=== PATIENT | male | born 1940 | race Caucasian/White ===

== ENCOUNTER 2022-02-17 22:09 | Inpatient (IN) | payer MEDICARE, BC ==
[~2022-02-17] VITALS: Ht 170.2 cm; Wt 57.2 kg
[2022-02-17 21:45] VITALS: BP 132/55
[2022-02-17] MEDS ORDERED: SENN-261 GT (22:54)
[2022-02-17] MEDS ORDERED: ACET160S GT (22:54)
[2022-02-17] MEDS ORDERED: ASCO500T10 GT (22:54)
[2022-02-17] MEDS ORDERED: METH1TAB69 GT (22:54)
[2022-02-17] MEDS ORDERED: LEVE500S9 GT (22:54)
[2022-02-17] MEDS ORDERED: LISI40TA13 GT (22:54)
[2022-02-17] MEDS ORDERED: CARV6.252 GT (22:54)
[2022-02-17] MEDS ORDERED: SIME80TA15 GT (22:54)
[2022-02-17] MEDS ORDERED: HYDR-894 GT (22:54)
[2022-02-17] MEDS ORDERED: MENT113O13 TOP (22:54)
[2022-02-17] MEDS ORDERED: ONDA-104 GT (22:54)
[2022-02-17] MEDS ORDERED: PANT40SU2 GT (22:54)
[2022-02-17] MEDS ORDERED: OLOP2.5D12 OP (22:54)
[2022-02-17] MEDS ORDERED: HEPA100D33 SUBCUT (22:54)
[2022-02-17] MEDS ORDERED: ROSU10TA2 GT (22:54)
[2022-02-17] MEDS ORDERED: VANC50SO3 GT (22:54)
[2022-02-17] MEDS ORDERED: LACT1CAP57 GT (22:54)
[2022-02-17] MEDS ORDERED: AMLO-212 GT (22:54)
[2022-02-17] MEDS ORDERED: BETH25TA2 GT (22:54)
[2022-02-17] MEDS ORDERED: ONDANSETRON HCL 4 MG TABLET GT PRN (23:15)
[2022-02-17] MEDS ORDERED: hydrALAZINE HCL 25 MG TABLET GT PRN (23:15)
[2022-02-18] MEDS: VITAL AF 1.2 1,000 ML LIQUID GT PRN (00:10)
[2022-02-18] MEDS: ACETAMINOPHEN 650 MG/20.3 ML LIQUID UDC GT PRN ×2 (00:32→22:23)
[2022-02-18 04:00] VITALS: BP 118/43
--- NOTE | 2022-02-18 06:09 | NUR ---
Pt admitted to ARU. No distress noted. No IV site at this time. Able to answer simple questions. North intact draining to gravity. GT patent running ordered feedings, tolerating well. Turned and repositioned for comfort. Wound care done in sacral region. medical housekeeper is at bedside. Will endorse to day shift.
[2022-02-18] MEDS: PANTOPRAZOLE ORAL SUSPENSION 40 MG SUSPDR.PKT GT SCH ×2 (06:45→17:09)
--- NOTE | 2022-02-18 07:39 | NUR ---
WOUND CARE CONSULT: PT PRESENTS WITH SACRAL DEEP TISSUE INJURY IN EVOLUTION, PRESENT ON ADMISSION. RECOMMENDATIONS MADE FOR SKIN PROTECTION AND WOUND CARE. DISCUSSED WITH NURSING STAFF. FIRST STEP LOW AIRLOSS MATTRESS IS ON ORDER. CAREGIVER AT BEDSIDE. YEN ROWELL NOTED. DR RANDY ATWOOD CALLED FOR SURGICAL CONSULT. IN AGREEMENT WITH PLAN OF CARE. Addendum: 02/18/22 at 0740 by ROSELINE BERRY RN Amended: Links added.
[2022-02-18] MEDS ORDERED: REMEDY ESSENTIAL ZINC PASTE 113 GM TOP PRN (07:45)
[2022-02-18 08:03] VITALS: BP 135/78
[2022-02-18] MEDS ORDERED: Medication Not On Formulary EA (Methenamine Hippurate 1 GM) GT SCH (09:00)
[2022-02-18] MEDS: BETHANECHOL CHLORIDE 25 MG TABLET GT SCH ×3 (09:34→17:09)
[2022-02-18] MEDS: AMLODIPINE 5 MG TABLET GT SCH ×2 (09:35→17:10)
[2022-02-18] MEDS: CARVEDILOL 6.25 MG TABLET GT SCH ×2 (09:35→17:10)
[2022-02-18] MEDS: levETIRAcetam 500 MG/5 ML LIQUID UDC GT SCH ×3 (09:36→21:47)
[2022-02-18] MEDS: VANCOMYCIN FOR PO/GT/NG USE GT SCH ×4 (09:36→21:47)
[2022-02-18] MEDS: SIMETHICONE 80 MG TAB.CHEW GT SCH ×4 (09:36→21:48)
[2022-02-18] MEDS: REMEDY ESSENTIAL ZINC PASTE 113 GM TOP SCH ×2 (09:37→21:49)
[2022-02-18] MEDS: HEPARIN SODIUM,PORCINE 5,000 UNITS/ML VIAL SQ SCH ×2 (09:38→22:13)
[2022-02-18 15:26] VITALS: BP 121/58
[2022-02-18 20:44] VITALS: BP 128/57
[2022-02-18] MEDS: ATORVASTATIN 20 MG TABLET GT SCH (21:48)
[2022-02-18] MEDS: LISINOPRIL 20 MG TABLET GT SCH (21:50)
[2022-02-19] MEDS: VITAL AF 1.2 1,000 ML LIQUID GT PRN (02:18)
[2022-02-19 04:05] VITALS: BP 140/64
[2022-02-19] MEDS: PANTOPRAZOLE ORAL SUSPENSION 40 MG SUSPDR.PKT GT SCH ×2 (07:05→17:15)
[2022-02-19 07:28] LABS: HEMATOCRIT 33.6 % (36.7-47.1); MEAN CORPUSCULAR HEMOGLOBIN 30.5 uug (23.8-33.4); MEAN CORPUSCULAR VOLUME 88.9 fL (73.0-96.2); PLATELET COUNT (AUTO) 441 K/uL (152-348)
[2022-02-19 07:31] LABS: CREATININE 0.7 mg/dL (0.6-1.3); MAGNESIUM 1.9 mg/dL (1.8-2.4); PHOSPHOROUS 4.2 mg/dL (2.5-4.9); POTASSIUM 4.3 mmol/L (3.5-5.1)
[2022-02-19 07:47] VITALS: BP 149/50
[2022-02-19] MEDS: levETIRAcetam 500 MG/5 ML LIQUID UDC GT SCH ×3 (09:00→20:29)
[2022-02-19] MEDS: SIMETHICONE 80 MG TAB.CHEW GT SCH ×4 (09:18→20:29)
[2022-02-19] MEDS: BETHANECHOL CHLORIDE 25 MG TABLET GT SCH ×3 (09:19→17:15)
[2022-02-19] MEDS: VANCOMYCIN FOR PO/GT/NG USE GT SCH ×4 (09:23→20:30)
[2022-02-19] MEDS: HEPARIN SODIUM,PORCINE 5,000 UNITS/ML VIAL SQ SCH ×2 (09:23→20:33)
[2022-02-19] MEDS: AMLODIPINE 5 MG TABLET GT SCH ×2 (09:24→17:17)
[2022-02-19] MEDS: CARVEDILOL 6.25 MG TABLET GT SCH ×2 (09:24→17:17)
[2022-02-19] MEDS: REMEDY ESSENTIAL ZINC PASTE 113 GM TOP SCH ×2 (09:25→20:36)
[2022-02-19] MEDS: POLYVINYL ALCOHOL OPHT DROPS 15 ML BOTTLE EACHEYE SCH ×3 (10:53→17:15)
[2022-02-19 15:11] VITALS: BP 120/47
[2022-02-19] MEDS: ATORVASTATIN 20 MG TABLET GT SCH (20:29)
[2022-02-19] MEDS: LISINOPRIL 20 MG TABLET GT SCH (20:30)
[2022-02-19 20:38] VITALS: BP 125/56
[2022-02-20] MEDS: ACETAMINOPHEN 650 MG/20.3 ML LIQUID UDC GT PRN (03:17)
--- NOTE | 2022-02-20 04:07 | NUR ---
Awake alert and oriented 2-3 Admitted for generalized weakness/acute CVA with left sided weakness. Repositioned for comfort. Turned to sides. Caregiver at bedside. On continous Gtube feedings of Vital AF 1.2 @ 50 cc/hr. HOB up at all times.Tolerated meds thru Gtube. Complained of pain Tylenol given. North catheter intact draining yellow urine. No acute distress noted. Will monitor patient.
[2022-02-20 04:18] VITALS: BP 136/79
[2022-02-20] MEDS: PANTOPRAZOLE ORAL SUSPENSION 40 MG SUSPDR.PKT GT SCH ×2 (06:31→16:35)
[2022-02-20 07:43] VITALS: BP 118/80
[2022-02-20] MEDS: HEPARIN SODIUM,PORCINE 5,000 UNITS/ML VIAL SQ SCH ×2 (08:35→20:26)
[2022-02-20] MEDS: BETHANECHOL CHLORIDE 25 MG TABLET GT SCH ×3 (08:37→16:35)
[2022-02-20] MEDS: CARVEDILOL 6.25 MG TABLET GT SCH ×2 (08:37→16:36)
[2022-02-20] MEDS: SIMETHICONE 80 MG TAB.CHEW GT SCH ×4 (08:37→20:19)
[2022-02-20] MEDS: POLYVINYL ALCOHOL OPHT DROPS 15 ML BOTTLE EACHEYE SCH ×3 (08:38→16:36)
[2022-02-20] MEDS: levETIRAcetam 500 MG/5 ML LIQUID UDC GT SCH ×2 (08:38→20:19)
[2022-02-20] MEDS: AMLODIPINE 5 MG TABLET GT SCH ×2 (08:38→16:36)
[2022-02-20] MEDS: REMEDY ESSENTIAL ZINC PASTE 113 GM TOP SCH ×2 (08:39→20:47)
[2022-02-20] MEDS: VANCOMYCIN FOR PO/GT/NG USE GT SCH ×4 (08:45→20:20)
--- NOTE | 2022-02-20 11:52 | NUR ---
INDIVIDUALIZED PLAN OF CARE
[2022-02-20 16:10] VITALS: BP 122/56
[2022-02-20] MEDS ORDERED: DEXTROSE 50% 50 ML DISP.SYRIN IV PRN (17:45)
[2022-02-20] MEDS: LISINOPRIL 20 MG TABLET GT SCH (20:20)
[2022-02-20] MEDS: ATORVASTATIN 20 MG TABLET GT SCH (20:22)
[2022-02-20 20:39] VITALS: BP 155/47
[2022-02-20] MEDS: BLOOD SUGAR DIAGNOSTIC 1 EACH STRIP VI SCH (20:48)
--- NOTE | 2022-02-21 04:15 | NUR ---
Condition unchanged. AAOx 2-3 Needs attended. Caregiver at bedside. Repositioned for comfort. Turned q2. VSS All meds given via Gtube. No acute distress noted. HOB up at all times. Will monitor patient.Accucheck this am. HOB up at all times.
[2022-02-21 04:29] VITALS: BP 128/62
[2022-02-21] MEDS: PANTOPRAZOLE ORAL SUSPENSION 40 MG SUSPDR.PKT GT SCH ×2 (06:30→17:16)
[2022-02-21 07:41] VITALS: BP 144/66
[2022-02-21] MEDS: levETIRAcetam 500 MG/5 ML LIQUID UDC GT SCH ×2 (09:03→22:20)
[2022-02-21] MEDS: POLYVINYL ALCOHOL OPHT DROPS 15 ML BOTTLE EACHEYE SCH ×3 (09:03→17:19)
[2022-02-21] MEDS: CARVEDILOL 6.25 MG TABLET GT SCH ×2 (09:04→17:17)
[2022-02-21] MEDS: SIMETHICONE 80 MG TAB.CHEW GT SCH ×4 (09:04→22:19)
[2022-02-21] MEDS: REMEDY ESSENTIAL ZINC PASTE 113 GM TOP SCH ×2 (09:05→21:00)
[2022-02-21] MEDS: BETHANECHOL CHLORIDE 25 MG TABLET GT SCH ×3 (09:05→17:16)
[2022-02-21] MEDS: AMLODIPINE 5 MG TABLET GT SCH ×2 (09:06→17:16)
[2022-02-21] MEDS: ACETAMINOPHEN 650 MG/20.3 ML LIQUID UDC GT PRN ×2 (09:09→13:41)
[2022-02-21] MEDS: VANCOMYCIN FOR PO/GT/NG USE GT SCH ×4 (09:10→22:19)
[2022-02-21] MEDS: HEPARIN SODIUM,PORCINE 5,000 UNITS/ML VIAL SQ SCH ×2 (09:12→22:21)
[2022-02-21 16:17] VITALS: BP 143/47
[2022-02-21 20:00] VITALS: BP 136/40
[2022-02-21] MEDS: BLOOD SUGAR DIAGNOSTIC 1 EACH STRIP VI SCH (21:00)
[2022-02-21] MEDS: LISINOPRIL 20 MG TABLET GT SCH (21:00)
[2022-02-21] MEDS: ATORVASTATIN 20 MG TABLET GT SCH (22:19)
[2022-02-22 04:35] VITALS: BP 133/56
--- NOTE | 2022-02-22 06:27 | NUR ---
uneventful night. pt slept throughout the night; reposition q2hr; tolerated feeding well; vitals wnl; caregiver at bedside.
[2022-02-22 06:52] LABS: MEAN CORPUSCULAR HEMOGLOBIN 30.4 uug (23.8-33.4); MEAN CORPUSCULAR VOLUME 89.2 fL (73.0-96.2); PLATELET COUNT (AUTO) 383 K/uL (152-348)
[2022-02-22 07:01] LABS: CREATININE 0.6 mg/dL (0.6-1.3); POTASSIUM 4.1 mmol/L (3.5-5.1)
[2022-02-22 07:35] VITALS: BP 148/45
[2022-02-22] MEDS: BETHANECHOL CHLORIDE 25 MG TABLET GT SCH ×3 (08:27→16:51)
[2022-02-22] MEDS: PANTOPRAZOLE ORAL SUSPENSION 40 MG SUSPDR.PKT GT SCH ×2 (08:27→16:50)
[2022-02-22] MEDS: SIMETHICONE 80 MG TAB.CHEW GT SCH ×4 (08:28→20:56)
[2022-02-22] MEDS: AMLODIPINE 5 MG TABLET GT SCH ×2 (08:31→16:58)
[2022-02-22] MEDS: CARVEDILOL 6.25 MG TABLET GT SCH ×2 (08:31→16:58)
[2022-02-22] MEDS: HEPARIN SODIUM,PORCINE 5,000 UNITS/ML VIAL SQ SCH ×2 (08:53→20:57)
[2022-02-22] MEDS: VANCOMYCIN FOR PO/GT/NG USE GT SCH ×4 (08:55→20:56)
[2022-02-22] MEDS: levETIRAcetam 500 MG/5 ML LIQUID UDC GT SCH ×2 (08:56→20:56)
[2022-02-22] MEDS: REMEDY ESSENTIAL ZINC PASTE 113 GM TOP SCH ×2 (08:56→20:59)
[2022-02-22] MEDS: POLYVINYL ALCOHOL OPHT DROPS 15 ML BOTTLE EACHEYE SCH ×3 (08:56→16:51)
[2022-02-22 16:00] VITALS: BP 136/45
[2022-02-22 20:00] VITALS: BP 146/50
[2022-02-22] MEDS: LISINOPRIL 20 MG TABLET GT SCH (20:56)
[2022-02-22] MEDS: ATORVASTATIN 20 MG TABLET GT SCH (20:56)
[2022-02-22] MEDS: BLOOD SUGAR DIAGNOSTIC 1 EACH STRIP VI SCH (20:57)
[2022-02-22] MEDS: INSULIN REGULAR, HUMAN 300 UNIT/3 ML VIAL SQ PRN (20:59)
[2022-02-23] MEDS: ACETAMINOPHEN 650 MG/20.3 ML LIQUID UDC GT PRN ×2 (01:05→23:55)
[2022-02-23 04:00] VITALS: BP 127/60
[2022-02-23] MEDS: VITAL AF 1.2 1,000 ML LIQUID GT PRN (05:54)
[2022-02-23] MEDS: PANTOPRAZOLE ORAL SUSPENSION 40 MG SUSPDR.PKT GT SCH ×2 (06:28→16:41)
[2022-02-23 07:35] VITALS: BP 135/64
[2022-02-23] MEDS: AMLODIPINE 5 MG TABLET GT SCH ×2 (08:34→16:43)
[2022-02-23] MEDS: levETIRAcetam 500 MG/5 ML LIQUID UDC GT SCH ×2 (08:34→21:22)
[2022-02-23] MEDS: BETHANECHOL CHLORIDE 25 MG TABLET GT SCH ×3 (08:35→16:43)
[2022-02-23] MEDS: POLYVINYL ALCOHOL OPHT DROPS 15 ML BOTTLE EACHEYE SCH ×3 (08:35→16:42)
[2022-02-23] MEDS: VANCOMYCIN FOR PO/GT/NG USE GT SCH ×4 (08:36→21:23)
[2022-02-23] MEDS: CARVEDILOL 6.25 MG TABLET GT SCH ×2 (09:06→16:42)
[2022-02-23] MEDS: REMEDY ESSENTIAL ZINC PASTE 113 GM TOP SCH ×2 (09:07→21:36)
[2022-02-23] MEDS: SIMETHICONE 80 MG TAB.CHEW GT SCH ×4 (09:22→21:23)
[2022-02-23] MEDS: HEPARIN SODIUM,PORCINE 5,000 UNITS/ML VIAL SQ SCH ×2 (09:24→21:43)
--- NOTE | 2022-02-23 11:24 | NUR ---
0720-Patient in bed, HOB elevated, awake with slurred speech, able to make eye contact, no physical or respiratory distress noted. GT (+) placement and patency. Aspiration precautions observed. No N/V noted. CG at bedside.
--- NOTE | 2022-02-23 15:51 | NUR ---
1300-Patient in bed, HOB elevated; No respiratory distress noted. GT feeding and fluids tolerating well, no N/V noted, aspiration precautions observed. Patient is total care. Requires of one-two person assist with ADLs, personal care/hygiene, transfers and bed mobility. Patient with slurred speech/mumbles some words, very difficult to understand, does make eye contact. No physical or respiratory distress noted.
[2022-02-23 16:00] VITALS: BP 146/54
--- NOTE | 2022-02-23 18:33 | NUR ---
Patient in bed at this time, at bedside. HOB elevated, patient listening to music, responsive to verbal and tactile stimuli. No c/o pain. Patient had two BMs today, care provided as needed. Repositioned Q2HRS to promote comfort and facilitate pressure relief. North catheter draining to gravity-yellow urine output. Routine rounds and frequent visual checks done. Repositioned frequently through out shift due to patient leans onto left side.
[2022-02-23] MEDS: ATORVASTATIN 20 MG TABLET GT SCH (21:23)
[2022-02-23] MEDS: LISINOPRIL 20 MG TABLET GT SCH (21:36)
[2022-02-23] MEDS: BLOOD SUGAR DIAGNOSTIC 1 EACH STRIP VI SCH (21:37)
[2022-02-23] MEDS: INSULIN REGULAR, HUMAN 300 UNIT/3 ML VIAL SQ PRN (21:42)
[2022-02-24 04:00] VITALS: BP 136/60
--- NOTE | 2022-02-24 06:20 | NUR ---
Awake alert and oriented x3-4 Caregiver at bedside. Repositioned for comfort as needed. Turned to sides. On continous TF of [place] AF 1.2 @50cc/hr Tolerated well. No nausea/ vomiting noted. Incontinent of bowel and bladder. No BM noted this shift. HOB up at all times. All due meds given as scheduled. Fall precautions maintained. North catheter intact draining yellow urine. I & O monitored.
[2022-02-24] MEDS: PANTOPRAZOLE ORAL SUSPENSION 40 MG SUSPDR.PKT GT SCH ×2 (06:34→16:55)
[2022-02-24 07:35] VITALS: BP 108/66
[2022-02-24] MEDS: CARVEDILOL 6.25 MG TABLET GT SCH ×2 (09:00→16:57)
[2022-02-24] MEDS: AMLODIPINE 5 MG TABLET GT SCH ×2 (09:00→16:57)
[2022-02-24] MEDS: BETHANECHOL CHLORIDE 25 MG TABLET GT SCH ×3 (09:02→16:55)
[2022-02-24] MEDS: SIMETHICONE 80 MG TAB.CHEW GT SCH ×4 (09:02→21:02)
[2022-02-24] MEDS: levETIRAcetam 500 MG/5 ML LIQUID UDC GT SCH ×2 (09:03→21:03)
[2022-02-24] MEDS: VANCOMYCIN FOR PO/GT/NG USE GT SCH ×4 (09:04→20:56)
[2022-02-24] MEDS: REMEDY ESSENTIAL ZINC PASTE 113 GM TOP SCH ×2 (09:05→21:04)
[2022-02-24] MEDS: POLYVINYL ALCOHOL OPHT DROPS 15 ML BOTTLE EACHEYE SCH ×3 (09:06→16:57)
[2022-02-24] MEDS: HEPARIN SODIUM,PORCINE 5,000 UNITS/ML VIAL SQ SCH ×2 (09:06→21:07)
--- NOTE | 2022-02-24 13:50 | NUR ---
INTERDISCIPLINARY TEAM CONFERENCE
[2022-02-24 16:00] VITALS: BP 129/60
[2022-02-24 20:00] VITALS: BP 131/37
[2022-02-24] MEDS: LISINOPRIL 20 MG TABLET GT SCH (21:02)
[2022-02-24] MEDS: ATORVASTATIN 20 MG TABLET GT SCH (21:02)
[2022-02-24] MEDS: BLOOD SUGAR DIAGNOSTIC 1 EACH STRIP VI SCH (21:11)
[2022-02-24] MEDS: ACETAMINOPHEN 650 MG/20.3 ML LIQUID UDC GT PRN (21:23)
[2022-02-24] MEDS: INSULIN REGULAR, HUMAN 300 UNIT/3 ML VIAL SQ PRN (21:55)
[2022-02-25 04:00] VITALS: BP 141/51
[2022-02-25] MEDS: PANTOPRAZOLE ORAL SUSPENSION 40 MG SUSPDR.PKT GT SCH ×2 (06:30→16:36)
[2022-02-25 08:00] VITALS: BP_SYST 131; BP_SYST 160; BP_DIAS 50; BP_DIAS 62
[2022-02-25] MEDS: levETIRAcetam 500 MG/5 ML LIQUID UDC GT SCH ×2 (08:28→21:04)
[2022-02-25] MEDS: VANCOMYCIN FOR PO/GT/NG USE GT SCH (08:28)
[2022-02-25] MEDS: SIMETHICONE 80 MG TAB.CHEW GT SCH ×4 (08:29→21:06)
[2022-02-25] MEDS: CARVEDILOL 6.25 MG TABLET GT SCH ×2 (08:30→16:55)
[2022-02-25] MEDS: BETHANECHOL CHLORIDE 25 MG TABLET GT SCH ×3 (08:30→16:37)
[2022-02-25] MEDS: REMEDY ESSENTIAL ZINC PASTE 113 GM TOP SCH ×2 (08:31→21:07)
[2022-02-25] MEDS: POLYVINYL ALCOHOL OPHT DROPS 15 ML BOTTLE EACHEYE SCH ×3 (08:31→16:37)
[2022-02-25] MEDS: AMLODIPINE 5 MG TABLET GT SCH ×2 (08:31→16:55)
[2022-02-25] MEDS: HEPARIN SODIUM,PORCINE 5,000 UNITS/ML VIAL SQ SCH ×2 (08:40→21:21)
[2022-02-25] MEDS: ACETAMINOPHEN 650 MG/20.3 ML LIQUID UDC GT PRN (08:41)
--- NOTE | 2022-02-25 10:28 | NUR ---
Patient seen by Dr. Horan and he spoke to daughter Agnieszka at bedside. MD ordered to decrease tube feeding rate to 35cc/hour and discontinue vancomycin via GT. Orders carried.
[2022-02-25 16:56] VITALS: BP 153/53
[2022-02-25 20:00] VITALS: BP 154/67
[2022-02-25] MEDS: ATORVASTATIN 20 MG TABLET GT SCH (21:05)
[2022-02-25] MEDS: HYDROCODONE/APAP 5-325MG TABLET PO PRN (21:05)
[2022-02-25] MEDS: LISINOPRIL 20 MG TABLET GT SCH (21:07)
[2022-02-25] MEDS: BLOOD SUGAR DIAGNOSTIC 1 EACH STRIP VI SCH (21:20)
--- NOTE | 2022-02-26 02:02 | NUR ---
Condition unchanged. Awake alert and oriented x4 Needs attended. Fall precautions maintained. Siderails up for safety. Caregiver at bedside. On continous feeding of Vital AF 1.2 @ 35 cc/hr. Tolerated well. HOB up at all times. Repositioned cor comfort. Turned q2hr. Medicated with [place] for pain with relief noted. North catheter intact draining yellow urine. No acute distress noted.
[2022-02-26 04:00] VITALS: BP 158/69
[2022-02-26] MEDS: PANTOPRAZOLE ORAL SUSPENSION 40 MG SUSPDR.PKT GT SCH ×2 (06:32→17:01)
[2022-02-26 07:47] VITALS: BP 129/45
[2022-02-26] MEDS: BETHANECHOL CHLORIDE 25 MG TABLET GT SCH ×3 (08:13→17:01)
[2022-02-26] MEDS: levETIRAcetam 500 MG/5 ML LIQUID UDC GT SCH ×2 (08:15→20:48)
[2022-02-26] MEDS: HEPARIN SODIUM,PORCINE 5,000 UNITS/ML VIAL SQ SCH ×2 (08:15→20:51)
[2022-02-26] MEDS: SIMETHICONE 80 MG TAB.CHEW GT SCH ×4 (08:16→20:47)
[2022-02-26] MEDS: CARVEDILOL 6.25 MG TABLET GT SCH ×2 (08:16→17:02)
[2022-02-26] MEDS: HYDROCODONE/APAP 5-325MG TABLET PO PRN (08:18)
[2022-02-26] MEDS: POLYVINYL ALCOHOL OPHT DROPS 15 ML BOTTLE EACHEYE SCH ×3 (08:26→17:02)
[2022-02-26 08:38] VITALS: BP 133/53
[2022-02-26] MEDS: AMLODIPINE 5 MG TABLET GT SCH ×2 (09:00→17:05)
[2022-02-26] MEDS: REMEDY ESSENTIAL ZINC PASTE 113 GM TOP SCH ×2 (09:44→20:48)
[2022-02-26 15:04] VITALS: BP 149/61
[2022-02-26] MEDS: NYSTATIN CREAM 30 GM TUBE TOP SCH ×2 (16:13→21:03)
--- NOTE | 2022-02-26 18:13 | NUR ---
0930-Patient alert and oriented,able to verbalize simple needs, no respiratory distress noted; GTF and fluids as ordered and well nirmal. No N/V noted. HOB kept elevated at all times; aspiration precautions observed. Medicated patient for pain PRN as per his pain level needs/ordered by MD with relief. North catheter draining to gravity yellow urine output. Patient complained of groin itchiness, MD Lorenzo notified with orders for topical Nystatin, order noted and carried out. Patient informed of order, agreed and consented. Nystatin cream applied to groin area. Mild/minimal skin irritation noted. Good perineal care provided. Repositioned Q2HRS to promote comfort and facilitate pressure relief. CG at bedside. Safety measures in place.
--- NOTE | 2022-02-26 18:20 | NUR ---
Patient awake, at bedside visiting. Patient appears comfortable and in no apparent distress.HOB elevated.No c/o pain, Routine rounds and frequent visual checks done. All needs anticipated and met.
[2022-02-26 20:00] VITALS: BP 134/69
[2022-02-26] MEDS: VITAL AF 1.2 1,000 ML LIQUID GT PRN (20:42)
[2022-02-26] MEDS: ATORVASTATIN 20 MG TABLET GT SCH (20:47)
[2022-02-26] MEDS: LISINOPRIL 20 MG TABLET GT SCH (20:48)
[2022-02-26] MEDS: BLOOD SUGAR DIAGNOSTIC 1 EACH STRIP VI SCH (20:49)
[2022-02-26] MEDS: INSULIN REGULAR, HUMAN 300 UNIT/3 ML VIAL SQ PRN (21:04)
[2022-02-27] MEDS: ACETAMINOPHEN 650 MG/20.3 ML LIQUID UDC GT PRN (00:54)
[2022-02-27 04:00] VITALS: BP 100/53
[2022-02-27] MEDS: PANTOPRAZOLE ORAL SUSPENSION 40 MG SUSPDR.PKT GT SCH ×2 (06:31→16:44)
[2022-02-27 08:24] VITALS: BP 145/53
[2022-02-27 08:27] LABS: HEMATOCRIT 35.6 % (36.7-47.1); MEAN CORPUSCULAR HEMOGLOBIN 31.3 uug (23.8-33.4); MEAN CORPUSCULAR VOLUME 88.3 fL (73.0-96.2); PLATELET COUNT (AUTO) 261 K/uL (152-348)
[2022-02-27 08:32] LABS: CREATININE 0.7 mg/dL (0.6-1.3); MAGNESIUM 1.7 mg/dL (1.8-2.4); PHOSPHOROUS 4.6 mg/dL (2.5-4.9); POTASSIUM 4.5 mmol/L (3.5-5.1)
[2022-02-27] MEDS: POLYVINYL ALCOHOL OPHT DROPS 15 ML BOTTLE EACHEYE SCH ×3 (08:50→17:04)
[2022-02-27] MEDS: HEPARIN SODIUM,PORCINE 5,000 UNITS/ML VIAL SQ SCH ×2 (08:51→20:40)
[2022-02-27] MEDS: SIMETHICONE 80 MG TAB.CHEW GT SCH ×4 (08:52→20:35)
[2022-02-27] MEDS: BETHANECHOL CHLORIDE 25 MG TABLET GT SCH ×3 (08:52→16:44)
[2022-02-27] MEDS: AMLODIPINE 5 MG TABLET GT SCH ×2 (08:52→16:52)
[2022-02-27] MEDS: CARVEDILOL 6.25 MG TABLET GT SCH ×2 (08:53→17:03)
[2022-02-27] MEDS: levETIRAcetam 500 MG/5 ML LIQUID UDC GT SCH ×2 (08:53→20:29)
[2022-02-27] MEDS: SENNOSIDES 1 TABLET GT PRN (08:53)
[2022-02-27] MEDS: NYSTATIN CREAM 30 GM TUBE TOP SCH ×2 (09:36→20:42)
[2022-02-27] MEDS: REMEDY ESSENTIAL ZINC PASTE 113 GM TOP SCH ×2 (09:37→20:32)
[2022-02-27] MEDS ORDERED: MAGNESIUM OXIDE 400 MG TABLET PO ONE (11:00)
[2022-02-27 16:38] VITALS: BP 110/56
--- NOTE | 2022-02-27 17:27 | NUR ---
Patient in bed at this time, rec'd PT/OT during the day/AM tolerated well. Patient total care, requires of two person maximum assist with transfers, bed mobility for turning and repositioning. Incontinent of BM, cleaned at routine intervals, had a small soft form BM, vizcaino catheter in place. Turned and repositioned Q2HRS/as needed. HOB elevated at all times; air demetria in place. No c/o pain.
--- NOTE | 2022-02-27 18:33 | NUR ---
5:40PM-Patient had a medium soft formed BM, Care provided, repositioned for comfort and pressure relief. HOB elevated; Air mattress in place and in working order. at bedside. Patient in no respiratory distress, denies any pain.
[2022-02-27] MEDS: ATORVASTATIN 20 MG TABLET GT SCH (20:29)
[2022-02-27] MEDS: LISINOPRIL 20 MG TABLET GT SCH (20:30)
[2022-02-27 20:31] VITALS: BP 124/45
[2022-02-27] MEDS: BLOOD SUGAR DIAGNOSTIC 1 EACH STRIP VI SCH (21:09)
[2022-02-27] MEDS: INSULIN REGULAR, HUMAN 300 UNIT/3 ML VIAL SQ PRN (21:11)
[2022-02-28 04:00] VITALS: BP 123/48
[2022-02-28] MEDS: VITAL AF 1.2 1,000 ML LIQUID GT PRN (04:22)
[2022-02-28] MEDS: PANTOPRAZOLE ORAL SUSPENSION 40 MG SUSPDR.PKT GT SCH ×2 (06:58→16:52)
[2022-02-28] MEDS: HEPARIN SODIUM,PORCINE 5,000 UNITS/ML VIAL SQ SCH ×2 (08:41→20:58)
[2022-02-28] MEDS: SIMETHICONE 80 MG TAB.CHEW GT SCH ×4 (08:42→20:39)
[2022-02-28] MEDS: SENNOSIDES 1 TABLET GT PRN (08:42)
[2022-02-28] MEDS: BETHANECHOL CHLORIDE 25 MG TABLET GT SCH ×3 (08:42→16:55)
[2022-02-28] MEDS: POLYVINYL ALCOHOL OPHT DROPS 15 ML BOTTLE EACHEYE SCH ×3 (08:51→16:56)
[2022-02-28] MEDS: AMLODIPINE 5 MG TABLET GT SCH ×2 (08:52→16:58)
[2022-02-28] MEDS: REMEDY ESSENTIAL ZINC PASTE 113 GM TOP SCH ×2 (08:53→20:58)
[2022-02-28] MEDS: NYSTATIN CREAM 30 GM TUBE TOP SCH ×2 (08:53→20:58)
[2022-02-28] MEDS: levETIRAcetam 500 MG/5 ML LIQUID UDC GT SCH ×2 (08:54→21:00)
[2022-02-28] MEDS: CARVEDILOL 6.25 MG TABLET GT SCH ×2 (08:54→16:57)
[2022-02-28 09:00] VITALS: BP 139/58
[2022-02-28] MEDS: ACETAMINOPHEN 650 MG/20.3 ML LIQUID UDC GT PRN ×3 (09:24→22:50)
[2022-02-28] MEDS ORDERED: VITAL AF 1.2 1,000 ML LIQUID GT PRN (11:45)
--- NOTE | 2022-02-28 12:56 | NUR ---
patient son at bedside stated would like to have bladder training, discussed in length about bladder training, patient son stated they are not ready for discontinue to the North and do bladder training, however like to clamp the North, will clamp and unclamp for bladder training.
[2022-02-28 16:55] VITALS: BP 131/53
--- NOTE | 2022-02-28 18:30 | NUR ---
no events noted during shift
[2022-02-28 20:00] VITALS: BP 153/83
[2022-02-28] MEDS: ATORVASTATIN 20 MG TABLET GT SCH (20:39)
[2022-02-28] MEDS: LISINOPRIL 20 MG TABLET GT SCH (20:56)
[2022-02-28] MEDS: INSULIN REGULAR, HUMAN 300 UNIT/3 ML VIAL SQ PRN (21:29)
[2022-02-28] MEDS: BLOOD SUGAR DIAGNOSTIC 1 EACH STRIP VI SCH (21:29)
[2022-03-01 04:00] VITALS: BP 141/61
--- NOTE | 2022-03-01 05:06 | NUR ---
Slept intermittently through out the night. North Cath intact and draining well with clear, light yellow output. Flushed 150 ml of water every 6 hours as ordered. Feedings at 15 cc/hr. Tolerating well. No residual noted. Turned every 2 hours. Caregiver at bedside.
[2022-03-01] MEDS: PANTOPRAZOLE ORAL SUSPENSION 40 MG SUSPDR.PKT GT SCH ×2 (06:42→17:55)
[2022-03-01 07:55] VITALS: BP 140/72
[2022-03-01] MEDS: CARVEDILOL 6.25 MG TABLET GT SCH ×2 (09:00→17:00)
[2022-03-01] MEDS: AMLODIPINE 5 MG TABLET GT SCH ×2 (09:00→17:56)
[2022-03-01] MEDS: ACETAMINOPHEN 650 MG/20.3 ML LIQUID UDC GT PRN (09:49)
[2022-03-01] MEDS ORDERED: ACETAMINOPHEN 325 MG TABLET PO PRN (11:30)
[2022-03-01] MEDS: BETHANECHOL CHLORIDE 25 MG TABLET GT SCH ×3 (11:51→17:57)
[2022-03-01] MEDS: HEPARIN SODIUM,PORCINE 5,000 UNITS/ML VIAL SQ SCH (11:59)
[2022-03-01] MEDS: REMEDY ESSENTIAL ZINC PASTE 113 GM TOP SCH (12:00)
[2022-03-01] MEDS: NYSTATIN CREAM 30 GM TUBE TOP SCH (12:00)
[2022-03-01] MEDS: levETIRAcetam 500 MG/5 ML LIQUID UDC GT SCH (12:20)
[2022-03-01] MEDS: POLYVINYL ALCOHOL OPHT DROPS 15 ML BOTTLE EACHEYE SCH ×3 (12:24→18:09)
[2022-03-01] MEDS: SIMETHICONE 80 MG TAB.CHEW GT SCH ×3 (13:00→17:56)
[2022-03-01 16:01] VITALS: BP 132/58
[2022-03-01] MEDS ORDERED: TIZANIDINE HCL 4 MG TABLET PO SCH (17:00)
[2022-03-01 17:56] VITALS: BP 115/53
--- NOTE | 2022-03-01 18:45 | NUR ---
Receive patient in hospital bed with eyes close. He is Farsi speaking, calm and relax at this time. No s/s of pain nor acute distress noted. He is breathing normal on room air. Dx: generalize weakness. Sacral stage 2. F/C intact and draining freely w/clear, yellow output. Flushed G-tube 150ml of fluids Q6hrs. Feeding is running at 15 cc/hr. Patient is tolerated feeding well. Reposition patient q2hrs. Left resting comfortably.
[2022-03-01] MEDS ORDERED: NOREPINEPHRINE BITARTRATE 8 MG in IV NORMAL SALINE 242 ML IV PRN (19:15)
[2022-03-01] MEDS ORDERED: ONDANSETRON 4 MG/2 ML VIAL IV PRN (19:15)
[2022-03-01] MEDS ORDERED: ATROPINE SULFATE 1 MG/10 ML DISP.SYRIN ONE (19:31)
[2022-03-01 19:37] LABS: HEMATOCRIT 33.7 % (36.7-47.1); MEAN CORPUSCULAR HEMOGLOBIN 31.2 uug (23.8-33.4); MEAN CORPUSCULAR VOLUME 89.7 fL (73.0-96.2); PLATELET COUNT (AUTO) 255 K/uL (152-348)
[2022-03-01 19:42] LABS: BILIRUBIN,TOTAL 0.3 mg/dL (0.2-1.0); CREATININE 0.9 mg/dL (0.6-1.3); POTASSIUM 4.4 mmol/L (3.5-5.1); TOTAL PROTEIN, SERUM 6.4 g/dL (6.4-8.2)
--- NOTE | 2022-03-01 19:45 | NUR ---
1845-Patient was getting fed by a family member; spouse later came out to report that patient was not responding that his blood pressure might be low. PUTTY TINTER MAKER came in and checked patient blood pressure which was low at 55/53, and then she rechecked it again it was still low at 66/54. Dr. Damico informed and he came in to stabilize patient. Rapid response team was then called around 1900. Team came to stabilize patient. @1700 patient was due for Coreg and Amlodipine. Bp checked 115/53 HR66, sn administered Amlodipine and held Coreg. It appears that patient did aspirated while being fed. Patient is being transfer to ICU. 0900 patient blood pressure low 99/57, HR72; both Coreg and Norvasc held.
--- NOTE | 2022-03-01 19:50 | NUR ---
: MADELIN AT B/S WITH ORDER TO give 1 amp of atropine IVP X1 BP 72/28 HR 44.patient on face mask at 15 liters 02 saturation 100%.
--- NOTE | 2022-03-01 19:51 | NUR ---
lab at b/s for blood cultures x2 set ,troponin,lactic acid, cbc,cmp .
[2022-03-01] MEDS ORDERED: DOPamine IV DRIP 400 MG/250ML 250 ML IV PRN (20:00)
--- NOTE | 2022-03-01 20:07 | NUR ---
DOPAMINE DRIP STARTED AT 5 MCG/KG/MIN BP 95/38 PER DEVIN YUSUF
--- NOTE | 2022-03-01 20:10 | NUR ---
CHEST XRAY AND KUB DONE AT B/S AND RESULTS SEEN BY : MADELIN .
[2022-03-01] MEDS ORDERED: CEFEPIME HCL 1 G in IV DEXTROSE 5% 50 ML IV SCH (21:00)
[2022-03-02 18:15] LABS: ABG BASE EXCESS 0.6 mmol/L; ABG HCO3 24.7 mmol/L; ABG PCO2 38.2 mmHg (35.0-45.0); ABG PH 7.429 (7.350-7.450); ABG PO2 159.6 mmHg (75.0-100.0); ABG SITE RIGHT RADIAL; ABG TOTAL HEMOGLOBIN 13.2 G/dL (13.5-18.0); COHb 0.3 % (0.5-1.5); MetHb 0.2 % (0.0-1.5); O2Hb 98.6 % (94.0-97.0); VENT MODE Nasal Cannula
[2022-03-04] MEDS ORDERED: CEFE1VIA3 IV (13:58)
[2022-03-04] MEDS ORDERED: LISI20TA30 PO (13:58)
[2022-03-04] MEDS ORDERED: ALBU2.5V7 NEB (13:58)
[2022-03-04] MEDS ORDERED: MENT113O TOP (13:58)
[2022-03-04] MEDS ORDERED: NUT.237L65 GT (13:58)
[2022-03-04] MEDS ORDERED: ATOR20TA GT (13:58)
[2022-03-04] MEDS ORDERED: CLOT30CR24 TOP (13:58)
[2022-03-04] MEDS ORDERED: VANC500V GT (13:58)
== END 2022-03-01 20:27 | disposition short-term general hospital (02) | DRG 56 ==
PROVIDERS: ADMIT Physical Medicine & Rehabilitation Pain Medicine; ATTEND Physical Medicine & Rehabilitation Pain Medicine
DX: I69.154 Hemiplegia and hemiparesis following nontraumatic intracerebral hemorrhage affecting left non-dominant side (principal); E43 Unspecified severe protein-calorie malnutrition; E87.1 Hypo-osmolality and hyponatremia; A04.72 Enterocolitis due to Clostridium difficile, not specified as recurrent; N39.0 Urinary tract infection, site not specified; I69.122 Dysarthria following nontraumatic intracerebral hemorrhage; I69.191 Dysphagia following nontraumatic intracerebral hemorrhage; I69.120 Aphasia following nontraumatic intracerebral hemorrhage; I10 Essential (primary) hypertension; E78.5 Hyperlipidemia, unspecified; I25.10 Atherosclerotic heart disease of native coronary artery without angina pectoris; Z93.1 Gastrostomy status; Z90.79 Acquired absence of other genital organ(s); Z85.46 Personal history of malignant neoplasm of prostate; E11.9 Type 2 diabetes mellitus without complications; E88.09 Other disorders of plasma-protein metabolism, not elsewhere classified; L89.152 Pressure ulcer of sacral region, stage 2
CPT/HCPCS: 36415; 36600; 70450; 71045; 74018; 83605; 83735; 84100; 84484; 85025; 87040; A4663; A6209; J0461; J0692; J1644; J1815; J3370; J3490; J7040

== ENCOUNTER 2022-03-01 20:41 | Inpatient (IN) | payer MEDICARE, BC ==
[2022-03-01] VITALS (26 sets, daily range): BP systolic 73–182; BP diastolic 30–146
[~2022-03-01] VITALS: Ht 167.6 cm; Wt 58.5 kg
--- NOTE | 2022-03-01 19:40 | NUR ---
dr: meagan at b/s spoked with patient so who is also a doctor . 2 liters of normal saline in progress and infusing at the same time wide open .started dopamine drip at 5 mcg/kg min .
--- NOTE | 2022-03-01 19:50 | NUR ---
patient in bed weak and lethargic on simple face mask 10 liters , hr was 44 given 1 amp atropine x1.
--- NOTE | 2022-03-01 19:51 | NUR ---
final assembly and packing supervisor at b/s for blood cultures x2, troponin,lactic acid cbc,chemistry .
--- NOTE | 2022-03-01 19:57 | NUR ---
stop dopamine drip as per osman rhodes verbal order at b/s. bp 184/67 hr 75 rr 18 saturation 100%.
--- NOTE | 2022-03-01 20:07 | NUR ---
restarted dopamine drip at 5 mcg/kg/min ,bp 95/38 hr 62.
--- NOTE | 2022-03-01 20:10 | NUR ---
xray at b/s for portbale chest xray and KUB xray . connected peg to suction LIWS.
[~2022-03-01 20:41] MED LIST: ACET160S GT; AMLO-212 GT; ASCO500T10 GT; BETH25TA2 GT; CARV6.252 GT; HEPA100D33 SUBCUT; HYDR-894 GT; LACT1CAP57 GT; LEVE500S9 GT; LISI40TA13 GT; MENT113O13 TOP; OLOP2.5D12 OP; ONDA-104 GT; PANT40SU2 GT; ROSU10TA2 GT; SENN-261 GT; SIME80TA15 GT; VANC50SO3 GT
[2022-03-01] MEDS ORDERED: Medication Not On Formulary EA (Lisinopril 40 MG) GT SCH (21:00)
[2022-03-01] MEDS ORDERED: HEPARIN SODIUM PORCINE SUBCUT SCH (21:00)
[2022-03-01] MEDS ORDERED: ALBUTEROL SULFATE 2.5 MG/3 ML NEBU NEB PRN (21:00)
[2022-03-01] MEDS: SIMETHICONE 80 MG TAB.CHEW GT SCH (21:00)
[2022-03-01] MEDS ORDERED: Medication Not On Formulary EA (Rosuvastatin Calcium (Crestor) 10 MG) GT SCH (21:00)
[2022-03-01] MEDS ORDERED: ALBUTEROL SULFATE 8 GM HFA.AER.AD IH PRN (21:00)
[2022-03-01] MEDS ORDERED: Medication Not On Formulary EA (Acetaminophen 650 MG) GT PRN (21:00)
[2022-03-01] MEDS ORDERED: LISINOPRIL 20 MG TABLET GT SCH (21:00)
[2022-03-01] MEDS: BLOOD SUGAR DIAGNOSTIC 1 EACH STRIP VI SCH (21:00)
[2022-03-01] MEDS ORDERED: REMEDY ESSENTIAL ZINC PASTE 113 GM TOP PRN (21:00)
[2022-03-01] MEDS ORDERED: [UNRECOGNIZED DRUG - OTHER] SUBCUT SCH (21:00)
[2022-03-01] MEDS ORDERED: ONDANSETRON 4 MG/2 ML VIAL IV PRN (21:00)
[2022-03-01] MEDS ORDERED: DEXTROSE 50% 50 ML DISP.SYRIN IV PRN (21:00)
[2022-03-01] MEDS ORDERED: SENNOSIDES 1 TABLET GT PRN (21:00)
[2022-03-01] MEDS ORDERED: OLOPATADINE 0.1% OPHT DROP 5 ML BOTTLE EACHEYE PRN (21:15)
--- NOTE | 2022-03-01 21:30 | NUR ---
moved patient to ER c/o ccu transition ,patient went via bed with son and and direct support professional caregiver ,advised son to bring to bring belongings home . went via bed .
[2022-03-01] MEDS: CEFEPIME HCL 1 G in IV DEXTROSE 5% 50 ML IV SCH (22:00)
[2022-03-01] MEDS ORDERED: DOPamine IV DRIP 400 MG/250ML 250 ML IV PRN (22:00)
[2022-03-01] MEDS ORDERED: levETIRAcetam 500 MG/5 ML LIQUID UDC ONE (22:39)
[2022-03-01] MEDS ORDERED: LISINOPRIL 10 MG TABLET ONE (22:39)
[2022-03-01] MEDS ORDERED: CEFEPIME HCL 1 G VIAL ONE (22:39)
[2022-03-01] MEDS ORDERED: HEPARIN SODIUM,PORCINE 5,000 UNITS/ML VIAL ONE (22:40)
[2022-03-01] MEDS: IV LACTATED RINGERS SOLUTION 1,000 ML IV SCH (22:50)
[2022-03-01] MEDS: HEPARIN SODIUM,PORCINE 5,000 UNITS/ML VIAL SQ SCH (23:05)
[2022-03-01] MEDS ORDERED: ATORVASTATIN 20 MG TABLET ONE (23:37)
[2022-03-01] MEDS: ATORVASTATIN 20 MG TABLET GT SCH (23:58)
[2022-03-01] MEDS: levETIRAcetam 500 MG/5 ML LIQUID UDC GT SCH (23:58)
[2022-03-02] VITALS (48 sets, daily range): BP systolic 113–163; BP diastolic 47–77
[2022-03-02] MEDS: INSULIN REGULAR, HUMAN 300 UNIT/3 ML VIAL SQ PRN
[2022-03-02] MEDS ORDERED: DEXTROSE 50% 50 ML DISP.SYRIN ONE (00:12)
[2022-03-02] MEDS ORDERED: DOPamine IV DRIP 400 MG/250ML 250 ML IV PRN (00:15)
[2022-03-02] MEDS ORDERED: ACETAMINOPHEN 325 MG TABLET ONE ×2 (03:23→17:56)
[2022-03-02] MEDS: ACETAMINOPHEN 325 MG TABLET GT PRN ×2 (03:24→17:57)
--- NOTE | 2022-03-02 03:55 | NUR ---
Pt verbalized chest pain,informed Dr Orta, Dr Orta at bedside, examined and spoke to pt, EKG done, EKG given to MD, no further orders
[2022-03-02 05:29] LABS: MEAN CORPUSCULAR HEMOGLOBIN 30.9 uug (23.8-33.4); MEAN CORPUSCULAR VOLUME 89.4 fL (73.0-96.2); PLATELET COUNT (AUTO) 252 K/uL (152-348)
[2022-03-02 05:52] LABS: BILIRUBIN,TOTAL 0.5 mg/dL (0.2-1.0); CREATININE 0.7 mg/dL (0.6-1.3); PHOSPHOROUS 3.6 mg/dL (2.5-4.9); POTASSIUM 4.1 mmol/L (3.5-5.1); TOTAL PROTEIN, SERUM 7.6 g/dL (6.4-8.2)
[2022-03-02] MEDS ORDERED: CEFTRIAXONE /D5W 50ML IVPB **ER PYXIS IV ONE (06:10)
[2022-03-02] MEDS ORDERED: CEFEPIME HCL 1 G VIAL ONE ×2 (06:13→22:10)
[2022-03-02] MEDS: CEFEPIME HCL 1 G in IV DEXTROSE 5% 50 ML IV SCH ×3 (06:20→22:58)
[2022-03-02] MEDS: BLOOD SUGAR DIAGNOSTIC 1 EACH STRIP VI SCH ×4 (06:37→21:09)
[2022-03-02 08:20] LABS: *BILIRUBIN,URIN NEGATIVE (NEGATIVE); *BLOOD, URINE 1+ (NEGATIVE); *CLARITY,URINE CLOUDY (CLEAR); *COLOR,URINE LIGHT YELLOW (YELLOW); *KETONES,URINE TRACE (NEGATIVE); *UROBILINOGEN,URINE 0.2 E.U./dl (NORMAL); LEUKOCYTE ESTERASE ,URINE 2+ (NEGATIVE); NITRITE, URINE POSITIVE (NEGATIVE); UGLUCOSE NEGATIVE (NEGATIVE)
[2022-03-02] MEDS ORDERED: MORPHINE SULFATE 2 MG/1 ML DISP.SYRIN ONE (08:56)
[2022-03-02] MEDS ORDERED: MORPHINE SULFATE 2 MG/1 ML DISP.SYRIN IV ONE (09:00)
[2022-03-02] MEDS: PANTOPRAZOLE ORAL SUSPENSION 40 MG SUSPDR.PKT GT SCH ×2 (09:06→16:32)
[2022-03-02] MEDS ORDERED: levETIRAcetam 500 MG/5 ML LIQUID UDC ONE (09:08)
[2022-03-02] MEDS ORDERED: HEPARIN SODIUM,PORCINE 5,000 UNITS/ML VIAL ONE (09:09)
[2022-03-02] MEDS ORDERED: ASCORBIC ACID 500 MG TABLET ONE (09:10)
[2022-03-02] MEDS ORDERED: SIMETHICONE 80 MG TAB.CHEW ONE (09:10)
[2022-03-02] MEDS ORDERED: BETHANECHOL CHLORIDE 25 MG TABLET ONE (09:10)
[2022-03-02] MEDS: SIMETHICONE 80 MG TAB.CHEW GT SCH ×4 (09:14→20:51)
[2022-03-02] MEDS: ASCORBIC ACID 500 MG TABLET GT SCH (09:15)
[2022-03-02] MEDS: CULTURELLE CAPSULE GT SCH (09:15)
[2022-03-02] MEDS: BETHANECHOL CHLORIDE 25 MG TABLET GT SCH ×3 (09:15→16:32)
[2022-03-02] MEDS: levETIRAcetam 500 MG/5 ML LIQUID UDC GT SCH ×2 (09:16→20:50)
[2022-03-02] MEDS: HEPARIN SODIUM,PORCINE 5,000 UNITS/ML VIAL SQ SCH ×3 (09:25→21:00)
[2022-03-02 14:14] LABS: BACTERIA,URINE MODERATE /HPF (NONE SEEN); SQUAMOUS EPITHELIAL CELL,UR FEW /HPF (NONE SEEN)
[2022-03-02] MEDS: IV LACTATED RINGERS SOLUTION 1,000 ML IV SCH (14:39)
--- NOTE | 2022-03-02 15:45 | NUR ---
per Dr. Garcia patient can be downgraded to tele status.
[2022-03-02 15:46] LABS: THYROID STIMULATING HORMONE 1.454 mIU/mL (0.358-3.740)
[2022-03-02 18:27] LABS: ABG BASE EXCESS -0.5 mmol/L; ABG HCO3 23.2 mmol/L; ABG PCO2 35.4 mmHg (35.0-45.0); ABG PH 7.435 (7.350-7.450); ABG PO2 89.7 mmHg (75.0-100.0); ABG SITE RIGHT RADIAL; ABG TOTAL HEMOGLOBIN 13.6 G/dL (13.5-18.0); COHb 0.1 % (0.5-1.5); MetHb 0.2 % (0.0-1.5); O2Hb 96.8 % (94.0-97.0); VENT MODE ROOM AIR
[2022-03-02] MEDS: VANCOMYCIN FOR PO/GT/NG USE GT SCH (18:38)
--- NOTE | 2022-03-02 19:21 | NUR ---
report given to Chel NAIR. Patient to be picked up due to nursing shortage for transportation upstairs.
[2022-03-02] MEDS: ATORVASTATIN 20 MG TABLET GT SCH (20:51)
[2022-03-02] MEDS ORDERED: VITAL AF 1.2 1,000 ML LIQUID GT PRN (21:15)
[2022-03-03] VITALS: BP 157/66
[2022-03-03] MEDS: VANCOMYCIN FOR PO/GT/NG USE GT SCH ×5 (00:15→23:10)
[2022-03-03] MEDS ORDERED: HYDROCODONE/APAP 5-325MG TABLET PO PRN (00:45)
[2022-03-03 04:00] VITALS: BP 165/77
[2022-03-03] MEDS ORDERED: CEFEPIME HCL 1 G VIAL ONE (05:48)
[2022-03-03] MEDS: CEFEPIME HCL 1 G in IV DEXTROSE 5% 50 ML IV SCH ×3 (05:58→21:00)
[2022-03-03] MEDS: PANTOPRAZOLE ORAL SUSPENSION 40 MG SUSPDR.PKT GT SCH ×2 (06:30→16:56)
--- NOTE | 2022-03-03 06:50 | NUR ---
Slept intermittently, health care facility administrator at bedside. IV site intact. North changed, draining to gravity. Tolerated all medications. Oral care provided. GT feeding started, tolerated well no residual. No distress noted throughout the night. Will endorse to day shift.
[2022-03-03] MEDS: BLOOD SUGAR DIAGNOSTIC 1 EACH STRIP VI SCH ×4 (06:56→20:36)
[2022-03-03 07:34] LABS: HEMATOCRIT 34.5 % (36.7-47.1); MEAN CORPUSCULAR HEMOGLOBIN 31.3 uug (23.8-33.4); MEAN CORPUSCULAR VOLUME 87.4 fL (73.0-96.2); PLATELET COUNT (AUTO) 220 K/uL (152-348)
[2022-03-03 07:45] LABS: CREATININE 0.6 mg/dL (0.6-1.3); MAGNESIUM 1.6 mg/dL (1.8-2.4); PHOSPHOROUS 3.2 mg/dL (2.5-4.9); POTASSIUM 3.5 mmol/L (3.5-5.1)
--- NOTE | 2022-03-03 08:00 | NUR ---
received resting in bed, on room air, no dyspnea noted, sat at 99%, head of bed elevated, GT clamped at this time, checked residual- none obtained, repositioned for comfort, tele SR 80's, safety measures in place, personal car md do resident urgent care at bedside
[2022-03-03 09:16] LABS: IRON, SERUM 79 ug/dL (50-175)
[2022-03-03] MEDS: levETIRAcetam 500 MG/5 ML LIQUID UDC GT SCH ×2 (09:25→20:35)
[2022-03-03] MEDS: SIMETHICONE 80 MG TAB.CHEW GT SCH ×4 (09:25→20:34)
[2022-03-03] MEDS: CULTURELLE CAPSULE GT SCH (09:26)
[2022-03-03] MEDS: ASCORBIC ACID 500 MG TABLET GT SCH (09:26)
[2022-03-03] MEDS: BETHANECHOL CHLORIDE 25 MG TABLET GT SCH ×3 (09:26→17:09)
[2022-03-03] MEDS: LISINOPRIL 20 MG TABLET PO SCH (09:33)
[2022-03-03] MEDS: ACETAMINOPHEN 325 MG TABLET GT PRN (09:53)
[2022-03-03] MEDS: MAGNESIUM SULFATE/D5W 100 ML IV SCH ×2 (09:57→10:57)
--- NOTE | 2022-03-03 10:19 | NUR ---
WOUND CARE CONSULT: PT PRESENTS WITH SACRAL INTACT DEEP TISSUE INJURY AND RASH WITH PEELING SKIN TO LOWER BUTTOCKS, PRESENT ON ADMISSION. YEN ROWELL NOTED. PT IS EXTREMELY THIN AND BONY. RECOMMENDATIONS MADE FOR SKIN PROTECTION AND WOUND CARE. DISCUSSED WITH NURSING STAFF AND CONSTANZA MURPHY N.P. FOR DR RANDY ATWOOD. PT IS ON FIRST STEP [facility]. IN AGREEMENT WITH PLAN OF CARE. Addendum: 03/03/22 at 1021 by ROSELINE BERRY RN Amended: Links added.
[2022-03-03 11:26] LABS: *BILIRUBIN,URIN NEGATIVE (NEGATIVE); *BLOOD, URINE 1+ (NEGATIVE); *CLARITY,URINE CLEAR (CLEAR); *COLOR,URINE YELLOW (YELLOW); *KETONES,URINE 2+ (NEGATIVE); *UROBILINOGEN,URINE 0.2 E.U./dl (NORMAL); LEUKOCYTE ESTERASE ,URINE 1+ (NEGATIVE); NITRITE, URINE NEGATIVE (NEGATIVE); PH,URINE 5.5 (5.0-8.0); UGLUCOSE NEGATIVE (NEGATIVE)
[2022-03-03 12:05] VITALS: BP 141/66
[2022-03-03] MEDS: POTASSIUM CHLORIDE 50 ML IV SCH ×2 (12:41→14:33)
[2022-03-03] MEDS: INSULIN REGULAR, HUMAN 300 UNIT/3 ML VIAL SQ PRN ×2 (12:43→17:07)
[2022-03-03] MEDS: HEPARIN SODIUM,PORCINE 5,000 UNITS/ML VIAL SQ SCH ×2 (13:36→20:35)
[2022-03-03] MEDS ORDERED: VITAL AF 1.2 1,000 ML LIQUID GT PRN (14:15)
[2022-03-03 14:18] LABS: BACTERIA,URINE FEW /HPF (NONE SEEN); SQUAMOUS EPITHELIAL CELL,UR FEW /HPF (NONE SEEN)
--- NOTE | 2022-03-03 15:30 | NUR ---
tolerating tube fdg well- no residual, increased to 40ml/hr, head of bed elevated, no distress noted
--- NOTE | 2022-03-03 16:11 | NUR ---
family member in the room most of the time- explained plan of care
[2022-03-03 16:12] VITALS: BP 119/55
[2022-03-03] MEDS: CLOTRIMAZOLE 1% CREAM 30 GM TUBE TOP SCH (17:10)
--- NOTE | 2022-03-03 18:00 | NUR ---
resting in bed, no distress noted, repositioned q 2h and kept comfortable, no residual noted water flush 200ml given and so with medications, tube fdg increased to 45ml/hr, no n/v, aspiration precaution observed, head of bed elevated remains on SR 65-70's, all needs attended and met, safety measures maintained
--- NOTE | 2022-03-03 19:30 | NUR ---
Received patient lying in bed. Private caregiver on bedside. AAOx1-2. In no apparent distress. No signs or symptoms of pain or SOB. O2 sat at 99% on RA. NSR on tele with HR of 66/min. Gt feeding infusing at 45cc/hr. Goal of 60cc/hr. Right upper arm midline, IV site on left AC, right FA intact and patent. North catheter intact and draining via gravity. Safety measure initiated and call light within reached.
[2022-03-03 20:00] VITALS: BP 149/53
[2022-03-03] MEDS: ATORVASTATIN 20 MG TABLET GT SCH (20:35)
[2022-03-03] MEDS: ACETAMINOPHEN 650 MG/20.3 ML LIQUID UDC GT SCH (20:35)
--- NOTE | 2022-03-03 21:00 | NUR ---
GT feeding and flushing well tolerated. No residual noted. Increased GT feeding to 50cc/hr. Continue to monitor.
[2022-03-04] VITALS: BP 136/65
--- NOTE | 2022-03-04 | NUR ---
GT feeding and flushing well tolerated. No residual noted. Increased GT feeding to 55cc/hr. Continue to monitor.
[2022-03-04 04:00] VITALS: BP 133/53
[2022-03-04] MEDS: CEFEPIME HCL 1 G in IV DEXTROSE 5% 50 ML IV SCH ×2 (05:07→14:12)
[2022-03-04] MEDS: VANCOMYCIN FOR PO/GT/NG USE GT SCH ×3 (05:07→17:21)
--- NOTE | 2022-03-04 05:12 | NUR ---
GT feeding and flushing well tolerated. No residual noted at this time. Increased GT feeding to 60cc/hr per goal. Continue to monitor.
--- NOTE | 2022-03-04 05:34 | NUR ---
Patient slept well during the night. In no acute distress. Appears comfortable. Remains Sinus rhythm on tele with HR of 74/min. GT feeding and flushing well tolerated. No adverse effect noted from IV antibiotic. North catheter intact and draining via gravity. Turned and reposition for comfort. Safety measure maintained and call light within reached. Private caregiver remains on bedside.
[2022-03-04] MEDS: PANTOPRAZOLE ORAL SUSPENSION 40 MG SUSPDR.PKT GT SCH ×2 (06:30→17:20)
[2022-03-04] MEDS: BLOOD SUGAR DIAGNOSTIC 1 EACH STRIP VI SCH ×3 (06:30→16:24)
[2022-03-04 07:22] LABS: HEMATOCRIT 33.2 % (36.7-47.1); MEAN CORPUSCULAR HEMOGLOBIN 31.4 uug (23.8-33.4); MEAN CORPUSCULAR VOLUME 87.5 fL (73.0-96.2); PLATELET COUNT (AUTO) 208 K/uL (152-348)
[2022-03-04 07:59] LABS: BILIRUBIN,TOTAL 0.3 mg/dL (0.2-1.0); CREATININE 0.7 mg/dL (0.6-1.3); MAGNESIUM 1.7 mg/dL (1.8-2.4); PHOSPHOROUS 2.8 mg/dL (2.5-4.9); POTASSIUM 3.9 mmol/L (3.5-5.1); TOTAL PROTEIN, SERUM 6.5 g/dL (6.4-8.2)
[2022-03-04 08:00] VITALS: BP 147/58
[2022-03-04] MEDS ORDERED: MAGNESIUM SULFATE/D5W 100 ML IV SCH (08:30)
[2022-03-04] MEDS: CULTURELLE CAPSULE GT SCH (09:22)
[2022-03-04] MEDS: BETHANECHOL CHLORIDE 25 MG TABLET GT SCH ×3 (09:22→17:21)
[2022-03-04] MEDS: ASCORBIC ACID 500 MG TABLET GT SCH (09:22)
[2022-03-04] MEDS: LISINOPRIL 20 MG TABLET PO SCH (09:23)
[2022-03-04] MEDS: SIMETHICONE 80 MG TAB.CHEW GT SCH ×3 (09:24→17:21)
[2022-03-04] MEDS: levETIRAcetam 500 MG/5 ML LIQUID UDC GT SCH (09:25)
[2022-03-04] MEDS: HEPARIN SODIUM,PORCINE 5,000 UNITS/ML VIAL SQ SCH (09:25)
[2022-03-04] MEDS: CLOTRIMAZOLE 1% CREAM 30 GM TUBE TOP SCH ×2 (09:26→17:24)
[2022-03-04] MEDS: ACETAMINOPHEN 650 MG/20.3 ML LIQUID UDC GT SCH (09:26)
[2022-03-04 11:33] VITALS: BP 115/51
[2022-03-04] MEDS: INSULIN REGULAR, HUMAN 300 UNIT/3 ML VIAL SQ PRN (12:03)
[2022-03-04] MEDS ORDERED: CLOT30CR24 TOP (13:58)
[2022-03-04] MEDS ORDERED: CEFE1VIA3 IV (13:58)
[2022-03-04] MEDS ORDERED: ALBU2.5V7 NEB (13:58)
[2022-03-04] MEDS ORDERED: VANC500V GT (13:58)
[2022-03-04] MEDS ORDERED: ATOR20TA GT (13:58)
[2022-03-04] MEDS ORDERED: LISI20TA30 PO (13:58)
[2022-03-04] MEDS ORDERED: MENT113O TOP (13:58)
[2022-03-04] MEDS ORDERED: NUT.237L65 GT (13:58)
[2022-03-04 15:33] VITALS: BP 134/56
== END 2022-03-04 17:46 | DRG 871 ==
LOC: TRANSITION 20:41 → UNDOADMIN 20:41 → CCU 20:41 → TRANSITION 20:42 → CCU 20:42 → TRANSITION 03-02 07:56 → OBSER 03-02 07:56 → TRANSITION 03-02 11:37 → OBSER 03-02 11:37 → TRANSITION 03-02 12:16 → TELE3 03-02 20:37
PROVIDERS: ADMIT Internal Medicine; ATTEND Internal Medicine
PROC: 05H533Z Insertion of Infusion Device into Right Subclavian Vein, Percutaneous Approach (ICD-10-PCS; principal; 2022-03-02)
PROC: B546ZZA Ultrasonography of Right Subclavian Vein, Guidance (ICD-10-PCS; 2022-03-02)
DX: A41.9 Sepsis, unspecified organism (principal); E43 Unspecified severe protein-calorie malnutrition; R65.21 Severe sepsis with septic shock; G92.8 Other toxic encephalopathy; J96.01 Acute respiratory failure with hypoxia; D68.59 Other primary thrombophilia; J98.11 Atelectasis; I69.354 Hemiplegia and hemiparesis following cerebral infarction affecting left non-dominant side; N39.0 Urinary tract infection, site not specified; E22.2 Syndrome of inappropriate secretion of antidiuretic hormone; R47.01 Aphasia; D64.9 Anemia, unspecified; E78.5 Hyperlipidemia, unspecified; R13.10 Dysphagia, unspecified; Z85.46 Personal history of malignant neoplasm of prostate; Z88.2 Allergy status to sulfonamides; Z93.1 Gastrostomy status; I25.10 Atherosclerotic heart disease of native coronary artery without angina pectoris; E88.09 Other disorders of plasma-protein metabolism, not elsewhere classified; Z68.20 Body mass index [BMI] 20.0-20.9, adult; R00.1 Bradycardia, unspecified; G40.909 Epilepsy, unspecified, not intractable, without status epilepticus; Z74.09 Other reduced mobility; R73.9 Hyperglycemia, unspecified; L89.151 Pressure ulcer of sacral region, stage 1; I69.398 Other sequelae of cerebral infarction; Z86.19 Personal history of other infectious and parasitic diseases; Z95.5 Presence of coronary angioplasty implant and graft; Z90.79 Acquired absence of other genital organ(s); R07.89 Other chest pain; Z20.822 Contact with and (suspected) exposure to COVID-19; I69.320 Aphasia following cerebral infarction; I11.9 Hypertensive heart disease without heart failure; R22.0 Localized swelling, mass and lump, head
CPT/HCPCS: 36415; 36600; 71045; 83550; 83735; 84100; 84443; 84484; 85025; 86140; 86803; 87077; 87086; 87806; 93005; 93307; A6209; G0378; J0692; J0696; J1644; J1815; J2270; J3370; J3475; J3480; J3490; J7050; J7120

== ENCOUNTER 2022-03-04 18:06 | Inpatient (IN) | payer MEDICARE, BC ==
[~2022-03-04] VITALS: Ht 175.3 cm; Wt 62.1 kg
[~2022-03-04 18:06] MED LIST changes: +ALBU2.5V7 NEB; +ATOR20TA GT; +CEFE1VIA3 IV; +CLOT30CR24 TOP; +LISI20TA30 PO; +MENT113O TOP; +NUT.237L65 GT; +VANC500V GT; -VANC50SO3 GT
[2022-03-04] MEDS ORDERED: REMEDY ESSENTIAL ZINC PASTE 113 GM TOP PRN (19:15)
--- NOTE | 2022-03-04 19:30 | NUR ---
Pt admitted from Telemetry status to acute rehab. Pt is a/o x 2, bedbound, vitals stable SpO2 96% on room air, gtube patent and running at 60cc, vizcaino patent and draining urine. No signs of acute distress, call light within reach. Family at bedside, Endorsed to shift leader.
[2022-03-04] MEDS ORDERED: SENNOSIDES 1 TABLET GT PRN (20:45)
[2022-03-04] MEDS ORDERED: ALBUTEROL SULFATE 2.5 MG/3 ML NEBU NEB PRN (20:45)
[2022-03-04] MEDS ORDERED: Medication Not On Formulary EA (Acetaminophen 650 MG) GT PRN (20:45)
[2022-03-04] MEDS ORDERED: ONDANSETRON HCL 4 MG TABLET GT PRN (20:45)
[2022-03-04] MEDS ORDERED: CALMOSEPTINE 113 GM OINTMENT TOP PRN (20:45)
[2022-03-04] MEDS ORDERED: HEPARIN SODIUM PORCINE SUBCUT SCH (21:00)
[2022-03-04] MEDS ORDERED: [UNRECOGNIZED DRUG - OTHER] SUBCUT SCH (21:00)
[2022-03-04] MEDS ORDERED: REMEDY ESSENTIAL ZINC PASTE 113 GM TP PRN (21:15)
[2022-03-04] MEDS ORDERED: OLOPATADINE 0.1% OPHT DROP 5 ML BOTTLE EACHEYE PRN (21:15)
[2022-03-04] MEDS: levETIRAcetam 500 MG/5 ML LIQUID UDC GT SCH (21:41)
[2022-03-04] MEDS: SIMETHICONE 80 MG TAB.CHEW GT SCH (21:41)
[2022-03-04] MEDS: ATORVASTATIN 20 MG TABLET GT SCH (21:42)
[2022-03-04] MEDS: CEFEPIME HCL 1 G in IV DEXTROSE 5% 50 ML IV SCH (21:43)
[2022-03-04] MEDS: HEPARIN SODIUM,PORCINE 5,000 UNITS/ML VIAL SQ SCH (21:44)
[2022-03-04] MEDS ORDERED: CEFEPIME HCL 1 G VIAL IV SCH (22:00)
[2022-03-05] MEDS ORDERED: VANCOMYCIN FOR PO/GT/NG USE GT SCH
[2022-03-05] MEDS: VANCOMYCIN FOR PO/GT/NG USE GT SCH ×5 (00:44→23:20)
[2022-03-05] MEDS: ACETAMINOPHEN 325 MG TABLET PO PRN (00:45)
[2022-03-05] MEDS: CEFEPIME HCL 1 G in IV DEXTROSE 5% 50 ML IV SCH ×3 (05:16→21:02)
[2022-03-05] MEDS: PANTOPRAZOLE ORAL SUSPENSION 40 MG SUSPDR.PKT GT SCH ×2 (06:49→17:22)
[2022-03-05 07:41] VITALS: BP 105/54
[2022-03-05] MEDS: LISINOPRIL 20 MG TABLET GT SCH (08:44)
[2022-03-05] MEDS: levETIRAcetam 500 MG/5 ML LIQUID UDC GT SCH ×2 (08:44→20:59)
[2022-03-05] MEDS: BETHANECHOL CHLORIDE 25 MG TABLET GT SCH ×3 (08:44→17:22)
[2022-03-05] MEDS: ASCORBIC ACID 500 MG TABLET GT SCH (08:45)
[2022-03-05] MEDS: HEPARIN SODIUM,PORCINE 5,000 UNITS/ML VIAL SQ SCH ×2 (08:46→21:03)
[2022-03-05] MEDS: SIMETHICONE 80 MG TAB.CHEW GT SCH ×4 (08:56→21:01)
[2022-03-05] MEDS: CULTURELLE CAPSULE GT SCH (09:00)
[2022-03-05] MEDS: CLOTRIMAZOLE 1% CREAM 30 GM TUBE TOP SCH ×2 (11:36→17:23)
--- NOTE | 2022-03-05 18:45 | NUR ---
Dr. Cabral (infx. specialist) requested UA dated 03/03/22 to call [facility] and request for both organisms in UA results to be identified. Placed a call to [facility] laboratory and spoke to Niurka, per Noé request above will be done. Endorsed appropriately to incoming relieving nurse for proper follow up.
[2022-03-05 20:00] VITALS: BP 157/57
[2022-03-05] MEDS: ATORVASTATIN 20 MG TABLET GT SCH (21:01)
[2022-03-05] MEDS: hydrALAZINE HCL 25 MG TABLET GT PRN (23:19)
[2022-03-06 04:00] VITALS: BP 139/53
[2022-03-06] MEDS: CEFEPIME HCL 1 G in IV DEXTROSE 5% 50 ML IV SCH ×3 (05:53→22:43)
[2022-03-06] MEDS: PANTOPRAZOLE ORAL SUSPENSION 40 MG SUSPDR.PKT GT SCH ×2 (05:54→17:38)
[2022-03-06] MEDS: VANCOMYCIN FOR PO/GT/NG USE GT SCH ×3 (05:54→18:37)
[2022-03-06 07:32] VITALS: BP 147/67
[2022-03-06] MEDS: CLOTRIMAZOLE 1% CREAM 30 GM TUBE TOP SCH ×2 (09:00→17:15)
[2022-03-06] MEDS: BETHANECHOL CHLORIDE 25 MG TABLET GT SCH ×3 (09:24→17:39)
[2022-03-06] MEDS: CULTURELLE CAPSULE GT SCH (09:24)
[2022-03-06] MEDS: HEPARIN SODIUM,PORCINE 5,000 UNITS/ML VIAL SQ SCH ×2 (09:26→22:50)
[2022-03-06] MEDS: ASCORBIC ACID 500 MG TABLET GT SCH (09:27)
[2022-03-06] MEDS: SIMETHICONE 80 MG TAB.CHEW GT SCH ×4 (09:28→21:00)
--- NOTE | 2022-03-06 09:30 | NUR ---
Patient had breakfast, in bed, feeling good, not pain or any distress were noticed or verbalized by the patient Addendum: 03/06/22 at 1136 by MING THOMAS RN a comment for the wrong patient
[2022-03-06] MEDS: levETIRAcetam 500 MG/5 ML LIQUID UDC GT SCH ×2 (09:42→22:41)
[2022-03-06] MEDS: LISINOPRIL 20 MG TABLET GT SCH (11:50)
[2022-03-06] MEDS: VITAL AF 1.2 1,000 ML LIQUID GT PRN (15:14)
[2022-03-06 16:00] VITALS: BP 156/65
[2022-03-06] MEDS: KETOCONAZOLE 2% CREAM 30 GM TUBE TP PRN (18:44)
[2022-03-06 20:00] VITALS: BP 102/74
[2022-03-06] MEDS: ATORVASTATIN 20 MG TABLET GT SCH (22:41)
[2022-03-06] MEDS: AMLODIPINE 2.5 MG TABLET PO SCH (22:42)
[2022-03-07] MEDS: hydrALAZINE HCL 25 MG TABLET GT PRN (00:21)
[2022-03-07] MEDS: VANCOMYCIN FOR PO/GT/NG USE GT SCH ×4 (00:31→17:24)
[2022-03-07 04:00] VITALS: BP 136/58
[2022-03-07 06:29] LABS: HEMATOCRIT 35.5 % (36.7-47.1); MEAN CORPUSCULAR HEMOGLOBIN 30.5 uug (23.8-33.4); MEAN CORPUSCULAR VOLUME 88.5 fL (73.0-96.2); PLATELET COUNT (AUTO) 216 K/uL (152-348)
[2022-03-07] MEDS: CEFEPIME HCL 1 G in IV DEXTROSE 5% 50 ML IV SCH ×3 (06:43→21:19)
[2022-03-07 06:46] VITALS: BP 159/57
[2022-03-07 06:50] LABS: BILIRUBIN,TOTAL 0.4 mg/dL (0.2-1.0); CREATININE 0.6 mg/dL (0.6-1.3); MAGNESIUM 1.8 mg/dL (1.8-2.4); PHOSPHOROUS 3.4 mg/dL (2.5-4.9); POTASSIUM 4.4 mmol/L (3.5-5.1); TOTAL PROTEIN, SERUM 6.8 g/dL (6.4-8.2)
[2022-03-07] MEDS: PANTOPRAZOLE ORAL SUSPENSION 40 MG SUSPDR.PKT GT SCH ×2 (07:30→17:19)
[2022-03-07 07:48] VITALS: BP 157/64
--- NOTE | 2022-03-07 08:58 | NUR ---
INDIVIDUALIZED PLAN OF CARE
--- NOTE | 2022-03-07 09:01 | NUR ---
RECEIVED REPORT FROM AM NURSE JENNIFER PT HAS A TRANSPLANT REGISTERED NURSE NO MEDICATION GIVEN ORDERED TOLERATED WELL. CHANGED HANNAH RODRIGUEZ BROUGHT IN A NEW SYRINGE AND CUP FOR MEDICATION. PT HAD BARLOW CARE GIVEN BARLOW IS INTACT. NO SIGNS OF DISTRESS NOTED ENDORSED TO AM NURSE SHIFT FEEDING WAS TURNED OFF SCHEDULED AND 200ML FLUSHES GIVEN EVERY 6 HOURS.
[2022-03-07] MEDS: levETIRAcetam 500 MG/5 ML LIQUID UDC GT SCH ×2 (09:04→21:20)
[2022-03-07] MEDS: BETHANECHOL CHLORIDE 25 MG TABLET GT SCH ×3 (09:04→17:24)
[2022-03-07] MEDS: CULTURELLE CAPSULE GT SCH (09:04)
[2022-03-07] MEDS: ASCORBIC ACID 500 MG TABLET GT SCH (09:04)
[2022-03-07] MEDS: MODAFINIL 100 MG TABLET GT SCH (09:04)
[2022-03-07] MEDS: SIMETHICONE 80 MG TAB.CHEW GT SCH ×4 (09:05→21:18)
[2022-03-07] MEDS: CLOTRIMAZOLE 1% CREAM 30 GM TUBE TOP SCH ×2 (09:06→17:20)
[2022-03-07] MEDS: HEPARIN SODIUM,PORCINE 5,000 UNITS/ML VIAL SQ SCH ×2 (09:07→21:26)
[2022-03-07] MEDS: LISINOPRIL 20 MG TABLET GT SCH (09:10)
[2022-03-07] MEDS: AMLODIPINE 2.5 MG TABLET PO SCH ×2 (09:10→21:19)
[2022-03-07 14:16] VITALS: BP 124/66
[2022-03-07] MEDS: VITAL AF 1.2 1,000 ML LIQUID GT PRN (14:53)
--- NOTE | 2022-03-07 15:00 | NUR ---
Pt able to tolerate 3 hrs on wheelchair sitting up with frequent weight shifting to prevent further tissue breakdown on sacru.
--- NOTE | 2022-03-07 16:00 | NUR ---
New order received for wound care and carried out.
--- NOTE | 2022-03-07 20:30 | NUR ---
RECEIVED REPORT FROM AM NURSE HOMER PATIENT IS POSITIVE FOR MRSA IN THE NARES.MEDICATION WAS ORDERED. PT BARLOW IS PATENT AND INTACT NO SIGNS OF INFILTRATION NOTED. REMOVED IV IN LEFT FOREARM APPEAR INFILTRATED PT TOLERATED WELL. MEDICATION GIVEN ORDERED ALONG WITH 200ML FLUSHED TOLERATED WELL PT IS MORE ALERT TODAY THAN YESTERDAY. CAREGIVER AT BEDSIDE PT HAD NO ADVERSE REACTION FROM MEDICATIONS AND PT MONITORED HOURLY AND PRN FOR FALLS AND SAFETY NO SIGNS OF DISTRESS NOTED .
[2022-03-07 20:51] VITALS: BP 148/56
[2022-03-07] MEDS: DRONABINOL 2.5 MG CAPSULE PO SCH (21:18)
[2022-03-07] MEDS: ATORVASTATIN 20 MG TABLET GT SCH (21:18)
[2022-03-08] MEDS: VANCOMYCIN FOR PO/GT/NG USE GT SCH ×4 (00:21→17:37)
[2022-03-08 04:22] VITALS: BP 129/59
[2022-03-08] MEDS: PANTOPRAZOLE ORAL SUSPENSION 40 MG SUSPDR.PKT GT SCH ×2 (05:51→17:06)
[2022-03-08] MEDS: CEFEPIME HCL 1 G in IV DEXTROSE 5% 50 ML IV SCH ×3 (05:51→21:46)
--- NOTE | 2022-03-08 06:59 | NUR ---
PT TOLERATED AM MEDICATION CHECKED RESIDUAL FROM G TUBE HAD 10ML NO SIGNS OF ADVERSE REACTION FROM MEDICATION. WILL ENDORSE TO AM NURSE.
[2022-03-08 07:32] VITALS: BP 132/53
[2022-03-08] MEDS: SIMETHICONE 80 MG TAB.CHEW GT SCH ×4 (09:00→21:48)
[2022-03-08] MEDS: CLOTRIMAZOLE 1% CREAM 30 GM TUBE TOP SCH ×2 (09:00→17:36)
[2022-03-08] MEDS: THERAHONEY GEL 1.5 OZ TUBE TOP SCH (09:00)
[2022-03-08] MEDS: levETIRAcetam 500 MG/5 ML LIQUID UDC GT SCH ×2 (11:24→21:48)
[2022-03-08] MEDS: CULTURELLE CAPSULE GT SCH (11:27)
[2022-03-08] MEDS: MODAFINIL 100 MG TABLET GT SCH ×2 (11:30→11:50)
[2022-03-08] MEDS: BETHANECHOL CHLORIDE 25 MG TABLET GT SCH ×3 (11:30→17:36)
[2022-03-08] MEDS: ASCORBIC ACID 500 MG TABLET GT SCH (11:30)
[2022-03-08] MEDS: MUPIROCIN 2% OINT 22 GM TUBE NS SCH ×2 (11:41→11:53)
[2022-03-08] MEDS: AMLODIPINE 2.5 MG TABLET PO SCH ×2 (11:49→21:45)
[2022-03-08] MEDS: LISINOPRIL 20 MG TABLET GT SCH (11:50)
[2022-03-08] MEDS: HEPARIN SODIUM,PORCINE 5,000 UNITS/ML VIAL SQ SCH ×2 (11:52→21:46)
[2022-03-08 16:00] VITALS: BP 154/74
[2022-03-08 20:00] VITALS: BP 145/63
--- NOTE | 2022-03-08 21:12 | NUR ---
Bladder scan performed s/p d/c vizcaino catheter, obtained 281 cc of urine retention. Will rechecked again after 2 hours. Md/son aware.
[2022-03-08] MEDS ORDERED: TERAZOSIN 5 MG CAPSULE GT SCH (21:30)
[2022-03-08] MEDS: ATORVASTATIN 20 MG TABLET GT SCH (21:44)
[2022-03-08] MEDS: DRONABINOL 2.5 MG CAPSULE PO SCH (21:44)
--- NOTE | 2022-03-08 22:15 | NUR ---
Voided at this time. Good анна care and skin care rendered.
[2022-03-09] MEDS: VANCOMYCIN FOR PO/GT/NG USE GT SCH ×4 (00:38→17:41)
[2022-03-09] MEDS: VITAL AF 1.2 1,000 ML LIQUID GT PRN (03:18)
[2022-03-09 04:00] VITALS: BP 142/72
[2022-03-09] MEDS: CEFEPIME HCL 1 G in IV DEXTROSE 5% 50 ML IV SCH ×3 (05:15→21:43)
[2022-03-09] MEDS: PANTOPRAZOLE ORAL SUSPENSION 40 MG SUSPDR.PKT GT SCH ×2 (06:05→17:11)
[2022-03-09 08:00] VITALS: BP 148/67
[2022-03-09] MEDS: BETHANECHOL CHLORIDE 25 MG TABLET GT SCH ×3 (08:47→17:11)
[2022-03-09] MEDS: HEPARIN SODIUM,PORCINE 5,000 UNITS/ML VIAL SQ SCH ×2 (08:47→21:42)
[2022-03-09] MEDS: LISINOPRIL 20 MG TABLET GT SCH (08:48)
[2022-03-09] MEDS: ASCORBIC ACID 500 MG TABLET GT SCH (08:48)
[2022-03-09] MEDS: AMLODIPINE 2.5 MG TABLET PO SCH ×2 (08:49→21:42)
[2022-03-09] MEDS: levETIRAcetam 500 MG/5 ML LIQUID UDC GT SCH ×2 (08:51→21:48)
[2022-03-09] MEDS: CULTURELLE CAPSULE GT SCH (08:59)
[2022-03-09] MEDS: ACETAMINOPHEN 325 MG TABLET PO PRN (08:59)
[2022-03-09] MEDS: SIMETHICONE 80 MG TAB.CHEW GT SCH ×4 (09:00→21:49)
[2022-03-09] MEDS: MUPIROCIN 2% OINT 22 GM TUBE NS SCH ×2 (10:02→21:49)
[2022-03-09] MEDS: CLOTRIMAZOLE 1% CREAM 30 GM TUBE TOP SCH ×2 (10:02→17:12)
[2022-03-09] MEDS: THERAHONEY GEL 1.5 OZ TUBE TOP SCH (10:03)
--- NOTE | 2022-03-09 13:23 | NUR ---
0710-Rec'd patient in bed, HOB elevaated 45 deg. Asleep, no respiratory distress noted. GT feeding running as ordered, nirmal. well. Aspiration precautions observed. No N/V noted. Call light at reach; CG at bedside. 0900-Due medication and fluids administered via GT as ordered, nirmal. well. Routine AM care provided, Patient had a wet diaper and changed. Patient will rec'd therapy as scheduled. GTF off at this time as ordered. 1300-Patient is in bed at this time, due medication administered as scheduled. No TANVI noted, at bedside visiting. All safety measures in place.
[2022-03-09 15:38] VITALS: BP 126/68
[2022-03-09 20:00] VITALS: BP 120/49
[2022-03-09] MEDS: ATORVASTATIN 20 MG TABLET GT SCH (21:41)
[2022-03-09] MEDS: DRONABINOL 2.5 MG CAPSULE PO SCH (21:42)
[2022-03-10] MEDS: VANCOMYCIN FOR PO/GT/NG USE GT SCH ×5 (00:14→23:44)
[2022-03-10 04:00] VITALS: BP 121/54
[2022-03-10] MEDS: CEFEPIME HCL 1 G in IV DEXTROSE 5% 50 ML IV SCH ×2 (05:31→13:29)
[2022-03-10] MEDS: PANTOPRAZOLE ORAL SUSPENSION 40 MG SUSPDR.PKT GT SCH ×2 (06:00→16:35)
--- NOTE | 2022-03-10 07:29 | NUR ---
Rec'd in bed, HOB elevated 45 deg. no respiratory distress, skin warm and dry to the touch, afebrile. No facial grimaces or moaning noted. GTF patient with feeding running as ordered. Safety measures in place, call light at reach. CG at bedside.
[2022-03-10 08:00] VITALS: BP 124/68
[2022-03-10] MEDS: CULTURELLE CAPSULE GT SCH (08:45)
[2022-03-10] MEDS: ASCORBIC ACID 500 MG TABLET GT SCH (08:45)
[2022-03-10] MEDS: LISINOPRIL 20 MG TABLET GT SCH (08:46)
[2022-03-10] MEDS: AMLODIPINE 2.5 MG TABLET PO SCH ×2 (08:46→20:31)
[2022-03-10] MEDS: MODAFINIL 100 MG TABLET GT SCH (08:47)
[2022-03-10] MEDS: HEPARIN SODIUM,PORCINE 5,000 UNITS/ML VIAL SQ SCH ×2 (08:51→20:52)
[2022-03-10] MEDS: BETHANECHOL CHLORIDE 25 MG TABLET GT SCH ×3 (08:52→16:35)
[2022-03-10] MEDS: MUPIROCIN 2% OINT 22 GM TUBE NS SCH ×2 (08:55→20:31)
[2022-03-10] MEDS: SIMETHICONE 80 MG TAB.CHEW GT SCH ×4 (08:55→20:27)
[2022-03-10] MEDS: CLOTRIMAZOLE 1% CREAM 30 GM TUBE TOP SCH ×2 (08:56→17:09)
[2022-03-10] MEDS: levETIRAcetam 500 MG/5 ML LIQUID UDC GT SCH ×2 (09:10→20:32)
[2022-03-10] MEDS: THERAHONEY GEL 1.5 OZ TUBE TOP SCH (09:10)
--- NOTE | 2022-03-10 14:34 | NUR ---
0900-Due medication administered via GT as ordered, no ASE noted. Patient in bed, LISBETH midline flushing well with site intact. CG at bedside. 10:00-Reconnected patient to GT feeding as ordered, patient OOB at this time awaiting for rehab and his daily therapy. 11:30-Transferred patient back to his bed with maximum assist of two person, care/diaper changed provided, GT feeding administered as ordered. Family at bedside. HOB elevated @ 45 deg. 1300-Scheduled medication administered as ordered, nirmal. well, no ASE noted 1400-Scheduled IV atb administered and running well. Patient denies any pain or discomfort. Continues in bed with head elevated, visiting him.
[2022-03-10 16:00] VITALS: BP_SYST 126; BP_SYST 97; BP_DIAS 54; BP_DIAS 58
--- NOTE | 2022-03-10 16:16 | NUR ---
INTERDISCIPLINARY TEAM CONFERENCE
[2022-03-10] MEDS: ARGININE/GLUTAMINE/CALCIUM BMB 1 EACH POWD.PACK GT SCH (17:09)
[2022-03-10 20:00] VITALS: BP 133/59
[2022-03-10] MEDS: DRONABINOL 2.5 MG CAPSULE PO SCH (20:28)
[2022-03-10] MEDS: ATORVASTATIN 20 MG TABLET GT SCH (20:31)
[2022-03-10] MEDS: ACETAMINOPHEN 325 MG TABLET PO PRN (20:42)
[2022-03-11 04:00] VITALS: BP 153/75
[2022-03-11] MEDS: VANCOMYCIN FOR PO/GT/NG USE GT SCH ×4 (05:59→23:48)
[2022-03-11] MEDS: PANTOPRAZOLE ORAL SUSPENSION 40 MG SUSPDR.PKT GT SCH ×2 (06:31→17:26)
--- NOTE | 2022-03-11 06:32 | NUR ---
Slept throughout the night. laundry operator wash room at bedside. No distress noted. Able to answer simple questions. IV site intact. GT patent, tolerating feeding, 5cc residual. 200cc water flushes given every 6 hours. Safety maintained. Will endorse to day shift.
[2022-03-11 07:33] LABS: HEMATOCRIT 36.2 % (36.7-47.1); MEAN CORPUSCULAR HEMOGLOBIN 31.1 uug (23.8-33.4); MEAN CORPUSCULAR VOLUME 88.1 fL (73.0-96.2); PLATELET COUNT (AUTO) 237 K/uL (152-348)
[2022-03-11 07:55] VITALS: BP 159/65
[2022-03-11 08:02] LABS: CREATININE 0.7 mg/dL (0.6-1.3); MAGNESIUM 1.8 mg/dL (1.8-2.4); PHOSPHOROUS 3.7 mg/dL (2.5-4.9); POTASSIUM 4.2 mmol/L (3.5-5.1)
[2022-03-11] MEDS: ASCORBIC ACID 500 MG TABLET GT SCH (09:53)
[2022-03-11] MEDS: SIMETHICONE 80 MG TAB.CHEW GT SCH ×4 (09:53→21:06)
[2022-03-11] MEDS: levETIRAcetam 500 MG/5 ML LIQUID UDC GT SCH ×2 (09:53→21:05)
[2022-03-11] MEDS: AMLODIPINE 2.5 MG TABLET PO SCH ×2 (09:55→21:05)
[2022-03-11] MEDS: LISINOPRIL 20 MG TABLET GT SCH (09:55)
[2022-03-11] MEDS: CULTURELLE CAPSULE GT SCH (09:55)
[2022-03-11] MEDS: MODAFINIL 100 MG TABLET GT SCH (09:55)
[2022-03-11] MEDS: BETHANECHOL CHLORIDE 25 MG TABLET GT SCH ×3 (09:55→17:25)
[2022-03-11] MEDS: CLOTRIMAZOLE 1% CREAM 30 GM TUBE TOP SCH ×2 (09:56→17:25)
[2022-03-11] MEDS: MUPIROCIN 2% OINT 22 GM TUBE NS SCH ×2 (09:56→21:06)
[2022-03-11] MEDS: THERAHONEY GEL 1.5 OZ TUBE TOP SCH (09:56)
[2022-03-11] MEDS: ARGININE/GLUTAMINE/CALCIUM BMB 1 EACH POWD.PACK GT SCH ×2 (09:56→17:26)
[2022-03-11] MEDS: HEPARIN SODIUM,PORCINE 5,000 UNITS/ML VIAL SQ SCH ×2 (09:57→21:06)
--- NOTE | 2022-03-11 10:54 | NUR ---
JEAN PAUL TAO WAS NOTIFIED ABOUT CD'S CAME IN FROM [facility] FOR THE PATIENT... SHE SAID SHE WOULD PICK THEM UP L.C.
[2022-03-11 16:15] VITALS: BP 122/62
--- NOTE | 2022-03-11 19:50 | NUR ---
PT TOLERATED FEEDING WELL. NO ACUTE DISTRESS NOTED. WOUND TREATMENT DONE. PT REPOSITION Q2H. NO COMPLAIN OF PAIN; NO SOB NOTED. PRN SUCTION DONE. FAMILY AND CAREGIVER AT BEDSIDE.
[2022-03-11 20:00] VITALS: BP 145/57
[2022-03-11] MEDS: DRONABINOL 2.5 MG CAPSULE PO SCH (21:05)
[2022-03-11] MEDS: ATORVASTATIN 20 MG TABLET GT SCH (21:05)
[2022-03-12] MEDS: VANCOMYCIN FOR PO/GT/NG USE GT SCH ×3 (05:39→17:45)
[2022-03-12] MEDS: PANTOPRAZOLE ORAL SUSPENSION 40 MG SUSPDR.PKT GT SCH ×2 (06:12→17:33)
[2022-03-12 08:06] VITALS: BP 138/64
[2022-03-12] MEDS: levETIRAcetam 500 MG/5 ML LIQUID UDC GT SCH ×2 (08:50→20:30)
[2022-03-12] MEDS: MODAFINIL 100 MG TABLET GT SCH (08:51)
[2022-03-12] MEDS: LISINOPRIL 20 MG TABLET GT SCH (08:51)
[2022-03-12] MEDS: SIMETHICONE 80 MG TAB.CHEW GT SCH ×4 (08:52→20:30)
[2022-03-12] MEDS: BETHANECHOL CHLORIDE 25 MG TABLET GT SCH ×3 (08:52→17:44)
[2022-03-12] MEDS: ASCORBIC ACID 500 MG TABLET GT SCH (08:52)
[2022-03-12] MEDS: CULTURELLE CAPSULE GT SCH (08:52)
[2022-03-12] MEDS: AMLODIPINE 2.5 MG TABLET PO SCH ×2 (08:52→20:27)
[2022-03-12] MEDS: HEPARIN SODIUM,PORCINE 5,000 UNITS/ML VIAL SQ SCH ×2 (08:53→20:25)
[2022-03-12] MEDS: CLOTRIMAZOLE 1% CREAM 30 GM TUBE TOP SCH ×2 (08:53→17:36)
[2022-03-12] MEDS: ARGININE/GLUTAMINE/CALCIUM BMB 1 EACH POWD.PACK GT SCH ×2 (08:54→17:45)
[2022-03-12] MEDS: ACETAMINOPHEN 325 MG TABLET PO PRN (09:00)
[2022-03-12] MEDS: THERAHONEY GEL 1.5 OZ TUBE TOP SCH (09:01)
[2022-03-12] MEDS: MUPIROCIN 2% OINT 22 GM TUBE NS SCH ×2 (11:08→20:29)
[2022-03-12] MEDS: VITAL AF 1.2 1,000 ML LIQUID GT PRN (14:01)
[2022-03-12 16:34] VITALS: BP 148/67
[2022-03-12 20:00] VITALS: BP 160/70
[2022-03-12] MEDS: DRONABINOL 2.5 MG CAPSULE PO SCH (20:25)
[2022-03-12] MEDS: ATORVASTATIN 20 MG TABLET GT SCH (20:27)
[2022-03-13] MEDS: VANCOMYCIN FOR PO/GT/NG USE GT SCH ×4 (00:21→18:01)
[2022-03-13 04:00] VITALS: BP 133/69
[2022-03-13] MEDS: PANTOPRAZOLE ORAL SUSPENSION 40 MG SUSPDR.PKT GT SCH ×2 (06:39→16:53)
[2022-03-13 08:00] VITALS: BP 126/57
[2022-03-13] MEDS: CULTURELLE CAPSULE GT SCH (08:20)
[2022-03-13] MEDS: SIMETHICONE 80 MG TAB.CHEW GT SCH ×4 (08:21→21:22)
[2022-03-13] MEDS: BETHANECHOL CHLORIDE 25 MG TABLET GT SCH ×3 (08:21→16:57)
[2022-03-13] MEDS: ASCORBIC ACID 500 MG TABLET GT SCH (08:21)
[2022-03-13] MEDS: MODAFINIL 100 MG TABLET GT SCH (08:22)
[2022-03-13] MEDS: HEPARIN SODIUM,PORCINE 5,000 UNITS/ML VIAL SQ SCH ×2 (08:27→21:24)
[2022-03-13] MEDS: levETIRAcetam 500 MG/5 ML LIQUID UDC GT SCH ×2 (08:38→21:20)
[2022-03-13] MEDS: AMLODIPINE 2.5 MG TABLET PO SCH ×2 (08:43→21:21)
[2022-03-13] MEDS: MUPIROCIN 2% OINT 22 GM TUBE NS SCH ×2 (08:44→21:25)
[2022-03-13] MEDS: LISINOPRIL 20 MG TABLET GT SCH (08:44)
[2022-03-13] MEDS: ARGININE/GLUTAMINE/CALCIUM BMB 1 EACH POWD.PACK GT SCH ×2 (08:45→16:54)
[2022-03-13] MEDS: THERAHONEY GEL 1.5 OZ TUBE TOP SCH (08:46)
[2022-03-13] MEDS: CLOTRIMAZOLE 1% CREAM 30 GM TUBE TOP SCH ×2 (08:46→16:55)
--- NOTE | 2022-03-13 11:04 | NUR ---
Patient found in bed, pcg by his bedside. He is alert and oriented x3. Able to comprehend but speech is a little slow. Normal air movement, with no apparent distress noted. Patient tolerated feeding well. wound treatment provided and reposition to side for comfort. 0900 Lisinopril and amlodipine held due to low BP.
[2022-03-13 12:54] LABS: HEMATOCRIT 40.9 % (36.7-47.1); MEAN CORPUSCULAR HEMOGLOBIN 30.3 uug (23.8-33.4); MEAN CORPUSCULAR VOLUME 89.2 fL (73.0-96.2); PLATELET COUNT (AUTO) 267 K/uL (152-348)
[2022-03-13 13:06] LABS: CREATININE 0.7 mg/dL (0.6-1.3); MAGNESIUM 1.9 mg/dL (1.8-2.4); PHOSPHOROUS 4.1 mg/dL (2.5-4.9); POTASSIUM 4.7 mmol/L (3.5-5.1)
--- NOTE | 2022-03-13 15:53 | NUR ---
1400-Bladder scan done. Patient is retaining 399 cc of fluids. Son by his bedside. around 1430 patient urinate in diaper and had a BM. Rechecked bladder scan at 1548 and patient is retaining 473cc. Dr. Carr notified. He states to wait a couple of more hours and recheck. Will continue to monitor.
[2022-03-13 16:00] VITALS: BP 142/64
--- NOTE | 2022-03-13 18:40 | NUR ---
1725 bladder scan done, pt is retaining 433cc. I later rechecked at 1840 with 325cc.Pcg is by pt bedside. he is awake in bed resting comfortably.
[2022-03-13 20:37] VITALS: BP 156/69
[2022-03-13] MEDS: ATORVASTATIN 20 MG TABLET GT SCH (21:21)
[2022-03-13] MEDS: DRONABINOL 2.5 MG CAPSULE PO SCH (21:24)
[2022-03-14] MEDS: VANCOMYCIN FOR PO/GT/NG USE GT SCH ×5 (00:05→23:29)
[2022-03-14 04:58] VITALS: BP 158/67
[2022-03-14] MEDS: PANTOPRAZOLE ORAL SUSPENSION 40 MG SUSPDR.PKT GT SCH ×2 (06:39→17:03)
[2022-03-14 08:02] VITALS: BP 151/67
[2022-03-14] MEDS: HEPARIN SODIUM,PORCINE 5,000 UNITS/ML VIAL SQ SCH ×2 (08:22→21:45)
[2022-03-14] MEDS: MODAFINIL 100 MG TABLET GT SCH (08:23)
[2022-03-14] MEDS: CULTURELLE CAPSULE GT SCH (08:23)
[2022-03-14] MEDS: levETIRAcetam 500 MG/5 ML LIQUID UDC GT SCH ×2 (08:23→21:45)
[2022-03-14] MEDS: BETHANECHOL CHLORIDE 25 MG TABLET GT SCH ×3 (08:24→17:03)
[2022-03-14] MEDS: LISINOPRIL 20 MG TABLET GT SCH (08:25)
[2022-03-14] MEDS: ASCORBIC ACID 500 MG TABLET GT SCH (08:26)
[2022-03-14] MEDS: MUPIROCIN 2% OINT 22 GM TUBE NS SCH ×2 (08:27→21:44)
[2022-03-14] MEDS: SIMETHICONE 80 MG TAB.CHEW GT SCH ×4 (08:27→21:43)
[2022-03-14] MEDS: AMLODIPINE 2.5 MG TABLET PO SCH ×2 (08:28→21:43)
[2022-03-14] MEDS: THERAHONEY GEL 1.5 OZ TUBE TOP SCH (08:28)
[2022-03-14] MEDS: ARGININE/GLUTAMINE/CALCIUM BMB 1 EACH POWD.PACK GT SCH ×2 (09:57→17:04)
[2022-03-14] MEDS: CLOTRIMAZOLE 1% CREAM 30 GM TUBE TOP SCH ×2 (09:58→17:07)
--- NOTE | 2022-03-14 10:28 | NUR ---
0710-Rec'd patient in bed with HOB elevated, GT (+) placement and patency. GTF off at this time as ordered. Patient able to wake up, verbalizes simple needs. No c/o pain. Call light at reach, CG at bedside. 0900-Routine AM care provided, Patient had a large soft formed BM (somewhat on the loose as per his usual). Noted some urine as well, unable to really estimate amount due to mix with BM. Repositioned for comfort and pressure relief. Patient denies any discomfort. 09-Bladder scan done with results of 569 urine retention. 0930-Notified Dr. Bruno Awan and per MD reed to straight cath patient. 10:30-Straight cath done with 850cc urine output, patient tolerated well procedure, explained prior to insertion and understood need for procedure. Strict aseptic technique applied, no resistance noted at insertion of vizcaino catheter. No verbalization of pain, facial grimaces noted.
[2022-03-14 16:00] VITALS: BP 163/67
[2022-03-14] MEDS: hydrALAZINE HCL 25 MG TABLET GT PRN (16:03)
--- NOTE | 2022-03-14 18:22 | NUR ---
5:20pm-Patient had a urien soaked diaper, bladder scan done with 354 residual result. 5:45pm-Rec'd orders from Dr. Munoz to discontinue Privinil medication, do a bladder scan Q6HRs and if urine residual is = or >500 cc to straght cath patient. Per Dr. Munoz orders given were discussed with patient son. Orders carried out.
[2022-03-14 20:12] VITALS: BP 156/73
[2022-03-14] MEDS: ATORVASTATIN 20 MG TABLET GT SCH (21:42)
[2022-03-14] MEDS: DRONABINOL 2.5 MG CAPSULE PO SCH (21:44)
--- NOTE | 2022-03-14 23:30 | NUR ---
Bladder scan performed as ordered, obtained 360 cc, not in distress/pain/discomforts at this time. patient had bladder incontinence around 2150. Good skin care rendered.
[2022-03-15 04:35] VITALS: BP 159/59
[2022-03-15] MEDS: hydrALAZINE HCL 25 MG TABLET GT PRN ×2 (06:00→12:14)
[2022-03-15] MEDS: PANTOPRAZOLE ORAL SUSPENSION 40 MG SUSPDR.PKT GT SCH ×2 (06:00→16:45)
[2022-03-15] MEDS: VANCOMYCIN FOR PO/GT/NG USE GT SCH ×4 (06:00→23:59)
--- NOTE | 2022-03-15 06:52 | NUR ---
Bladder scan done = 677 cc, in and out cath performed obtained 700 cc clear yellow urine. Patient tolerated procedure well. Patient son aware.
--- NOTE | 2022-03-15 08:00 | NUR ---
NSG:Received patient lying in bed comfortably. personal day care home provider @ bedside. HOB elevated 45 deg. Awake no respiratory distress noted. GT feeding running as ordered, nirmal. well. Aspiration precautions observed. No N/V noted. Call light at reach; CG at bedside.
[2022-03-15 08:04] VITALS: BP 157/70
[2022-03-15 09:00] VITALS: BP 140/66
[2022-03-15] MEDS: levETIRAcetam 500 MG/5 ML LIQUID UDC GT SCH ×2 (09:20→21:29)
[2022-03-15] MEDS: MODAFINIL 100 MG TABLET GT SCH (09:21)
[2022-03-15] MEDS: BETHANECHOL CHLORIDE 25 MG TABLET GT SCH ×3 (09:21→16:41)
[2022-03-15] MEDS: ASCORBIC ACID 500 MG TABLET GT SCH (09:21)
[2022-03-15] MEDS: SIMETHICONE 80 MG TAB.CHEW GT SCH ×4 (09:21→21:28)
[2022-03-15] MEDS: CULTURELLE CAPSULE GT SCH (09:21)
[2022-03-15] MEDS: HEPARIN SODIUM,PORCINE 5,000 UNITS/ML VIAL SQ SCH ×2 (09:22→21:27)
[2022-03-15] MEDS: CLOTRIMAZOLE 1% CREAM 30 GM TUBE TOP SCH ×2 (09:23→16:43)
[2022-03-15] MEDS: THERAHONEY GEL 1.5 OZ TUBE TOP SCH (09:23)
[2022-03-15] MEDS: KETOCONAZOLE 2% CREAM 30 GM TUBE TP PRN (09:23)
[2022-03-15] MEDS: AMLODIPINE 2.5 MG TABLET PO SCH ×2 (09:39→21:27)
[2022-03-15] MEDS: ARGININE/GLUTAMINE/CALCIUM BMB 1 EACH POWD.PACK GT SCH ×2 (09:42→16:42)
--- NOTE | 2022-03-15 13:41 | NUR ---
bladder scan done rcecived 200cc.
--- NOTE | 2022-03-15 14:35 | NUR ---
nsg: patient resting in bed comfortably. reposition for safety. Due medication administered via GT as ordered, no ASE noted. Patient in bed, LISBETH midline flushing well with site intact. call light w/in reach.
[2022-03-15 16:31] VITALS: BP 114/68
--- NOTE | 2022-03-15 17:23 | NUR ---
NSG: Bladder scan done. Patient is retaining 377 cc of fluids @ this time. Son and @ bedside. around 1630 patient urinate in diaper and had a large soft BM. continue plan of care.
[2022-03-15 20:32] VITALS: BP 157/58
[2022-03-15] MEDS: DRONABINOL 2.5 MG CAPSULE PO SCH (21:26)
[2022-03-15] MEDS: ATORVASTATIN 20 MG TABLET GT SCH (21:26)
--- NOTE | 2022-03-16 | NUR ---
Bladder scan tdal=691ob residual noted.
[2022-03-16 04:28] VITALS: BP 164/69
[2022-03-16] MEDS: PANTOPRAZOLE ORAL SUSPENSION 40 MG SUSPDR.PKT GT SCH ×2 (05:42→17:18)
[2022-03-16] MEDS: VANCOMYCIN FOR PO/GT/NG USE GT SCH ×3 (05:42→17:17)
[2022-03-16] MEDS: hydrALAZINE HCL 25 MG TABLET GT PRN (06:18)
--- NOTE | 2022-03-16 06:18 | NUR ---
BP 164/69, Hydralazine 25mg given as needed and ordered. Bladder scan done as [id number] cc. Will endorse accordingly to Am shift nurse.
[2022-03-16 08:36] VITALS: BP 151/78
[2022-03-16] MEDS: ACETAMINOPHEN 325 MG TABLET PO PRN (09:23)
[2022-03-16] MEDS: levETIRAcetam 500 MG/5 ML LIQUID UDC GT SCH ×2 (09:24→22:28)
[2022-03-16] MEDS: MODAFINIL 100 MG TABLET GT SCH (09:24)
[2022-03-16] MEDS: BETHANECHOL CHLORIDE 25 MG TABLET GT SCH ×3 (09:24→17:17)
[2022-03-16] MEDS: CULTURELLE CAPSULE GT SCH (09:24)
[2022-03-16] MEDS: AMLODIPINE 2.5 MG TABLET PO SCH ×2 (09:25→22:28)
[2022-03-16] MEDS: HEPARIN SODIUM,PORCINE 5,000 UNITS/ML VIAL SQ SCH ×2 (09:26→22:35)
[2022-03-16] MEDS: ASCORBIC ACID 500 MG TABLET GT SCH (09:28)
[2022-03-16] MEDS: KETOCONAZOLE 2% CREAM 30 GM TUBE TP PRN (09:36)
[2022-03-16] MEDS: SIMETHICONE 80 MG TAB.CHEW GT SCH ×4 (10:30→22:30)
[2022-03-16] MEDS: THERAHONEY GEL 1.5 OZ TUBE TOP SCH (10:31)
[2022-03-16] MEDS: ARGININE/GLUTAMINE/CALCIUM BMB 1 EACH POWD.PACK GT SCH ×2 (10:31→17:18)
[2022-03-16] MEDS: CLOTRIMAZOLE 1% CREAM 30 GM TUBE TOP SCH ×2 (10:31→17:19)
--- NOTE | 2022-03-16 12:00 | NUR ---
BLADDER SCAN AT THIS TIME IS 391 BLADDER IS SOFT ORDER IS TO STRAIGHT CATH IF OVER 500 WILL CONTINUE TO OBSERVE.
[2022-03-16] MEDS: VITAL AF 1.2 1,000 ML LIQUID GT PRN (13:20)
[2022-03-16 16:34] VITALS: BP 157/80
--- NOTE | 2022-03-16 18:17 | NUR ---
BLADDER SCAN AT THIS TIME IS 536 STRAIGHT CATH AND GOT 500 ML ORDERED WILL ENDORSE.
[2022-03-16 20:00] VITALS: BP 175/85
[2022-03-16] MEDS: DRONABINOL 2.5 MG CAPSULE PO SCH (22:27)
[2022-03-16] MEDS: ATORVASTATIN 20 MG TABLET GT SCH (22:28)
[2022-03-17] MEDS: VANCOMYCIN FOR PO/GT/NG USE GT SCH ×4 (00:13→18:38)
[2022-03-17] MEDS: hydrALAZINE HCL 25 MG TABLET GT PRN ×2 (00:18→23:13)
[2022-03-17 04:00] VITALS: BP 115/87
--- NOTE | 2022-03-17 07:30 | NUR ---
RECEIVED PATIENT IN BED WITH EYES CLOSED OPENS EYES WHEN NAME IS CALLED BUT IS NON VERBAL ALL NEEDS ANTICIPATED AND SATISFIED TOTALLY DEPENDENT ON NURSES FOR ALL ADL TURNED AND REPOSITIONED FOR COMFORT GT FEEDINGS REMAIN IN PROGRESS WITH NO S/S OF GASTRIC RESIDUAL AT THIS TIME MADE COMFORTABLE WILL CONTINUE TO OBSERVE.
[2022-03-17 07:54] VITALS: BP 144/75
--- NOTE | 2022-03-17 08:47 | NUR ---
RECEIVED REPORT FROM AM NURSE CLINT PT HAD BLADDER SCAN AND HAD 508 ON THE SCAN BUT WAS ONLY ABLE TO TAKE OUT 100 ML WITH A STRAIGHT CATH. WILL ENDORSE TO NEXT SHIFT NURSE WILL CONTINUE TO MONITOR FOR SAFETY.PT IS TOLERATING FEEDING NO SIGNS EMESIS FROM FEEDING WILL CONTINUE TO MONITOR.
[2022-03-17] MEDS: PANTOPRAZOLE ORAL SUSPENSION 40 MG SUSPDR.PKT GT SCH ×2 (09:10→17:14)
--- NOTE | 2022-03-17 09:35 | NUR ---
PT DIDN'T RECEIVED 0600 DOSE OF VANCOMYCIN I KICK OUT OF COMPUTER BROADBAND TECHNICIAN WAS TO GET ME IN BY 0830 BUT AM NURSE HAS A NOON DOSE NOT GIVEN AM DOSE.
[2022-03-17] MEDS: CULTURELLE CAPSULE GT SCH (09:41)
[2022-03-17] MEDS: BETHANECHOL CHLORIDE 25 MG TABLET GT SCH ×3 (09:41→17:14)
[2022-03-17] MEDS: MODAFINIL 100 MG TABLET GT SCH (09:41)
[2022-03-17] MEDS: SIMETHICONE 80 MG TAB.CHEW GT SCH ×4 (09:42→23:10)
[2022-03-17] MEDS: ASCORBIC ACID 500 MG TABLET GT SCH (09:42)
[2022-03-17] MEDS: AMLODIPINE 2.5 MG TABLET PO SCH ×2 (09:42→23:12)
[2022-03-17] MEDS: HEPARIN SODIUM,PORCINE 5,000 UNITS/ML VIAL SQ SCH ×2 (09:45→21:00)
[2022-03-17] MEDS: levETIRAcetam 500 MG/5 ML LIQUID UDC GT SCH ×2 (09:46→23:11)
[2022-03-17] MEDS: ACETAMINOPHEN 325 MG TABLET PO PRN (09:57)
[2022-03-17] MEDS: ARGININE/GLUTAMINE/CALCIUM BMB 1 EACH POWD.PACK GT SCH ×2 (10:01→17:15)
[2022-03-17] MEDS: CLOTRIMAZOLE 1% CREAM 30 GM TUBE TOP SCH ×2 (10:02→17:15)
[2022-03-17] MEDS: THERAHONEY GEL 1.5 OZ TUBE TOP SCH (10:02)
[2022-03-17] MEDS: VITAL AF 1.2 1,000 ML LIQUID GT PRN (12:24)
--- NOTE | 2022-03-17 12:30 | NUR ---
BLADDER SCANNER DONE ORDERED AND IT SHOWS 556 PATIENT STRAIGHT CATH AND 600 ML URINE OBTAINED. MESSAGE SENT TO DR BRADSHAW TO NOTIFY HIM OF THE LARGE AMOUNTS OF URINE REMOVED FROM PATIENT PLAN IS FOR THE PATIENT TO BE DISCHARGED TOMORROW.
--- NOTE | 2022-03-17 14:09 | NUR ---
INTERDISCIPLINARY TEAM CONFERENCE
--- NOTE | 2022-03-17 15:00 | NUR ---
SPOKE WITH DR BRADSHAW RE BLADER SCANNER AND STRAIGHT CATH AND HE STATED WILL TALK WITH PATIENTS SON TOMORROW PRIOR TO DISCHARGE RE UROLOGY CONSULT AN OUT PATIENT.
[2022-03-17 16:19] VITALS: BP 156/74
--- NOTE | 2022-03-17 18:40 | NUR ---
BLADDER SCANNER AT THIS TIME IS 295 [place] GT FEEDINGS WITH NO RESIDUAL REPOSITIONED FOR COMFORT MADE COMFORTABLE WILL CONTINUE TO OBSERVE.
[2022-03-17 20:00] VITALS: BP 165/59
[2022-03-17] MEDS ORDERED: NITROGLYCERIN 0.4 MG/TAB BOTTLE SL PRN ×2 (21:30)
[2022-03-17 22:12] LABS: CARBON DIOXIDE 29 mmol/L (21-32); CHLORIDE 93 mmol/L (98-107); CREATININE 0.6 mg/dL (0.6-1.3); GLUCOSE 137 mg/dL (74-106); POTASSIUM 4.2 mmol/L (3.5-5.1); UREA NITROGEN, BLOOD 24 mg/dL (7-18)
[2022-03-17] MEDS: ATORVASTATIN 20 MG TABLET GT SCH (23:10)
[2022-03-17] MEDS: DRONABINOL 2.5 MG CAPSULE PO SCH (23:11)
[2022-03-18] MEDS: VANCOMYCIN FOR PO/GT/NG USE GT SCH ×4 (00:49→17:15)
[2022-03-18 04:00] VITALS: BP 150/65
[2022-03-18 04:38] LABS: HEMATOCRIT 38.3 % (36.7-47.1); MEAN CORPUSCULAR HEMOGLOBIN 30.6 uug (23.8-33.4); MEAN CORPUSCULAR VOLUME 87.8 fL (73.0-96.2); PLATELET COUNT (AUTO) 312 K/uL (152-348)
[2022-03-18 04:48] LABS: CARBON DIOXIDE 27 mmol/L (21-32); CHLORIDE 94 mmol/L (98-107); CREATININE 0.6 mg/dL (0.6-1.3); GLUCOSE 140 mg/dL (74-106); MAGNESIUM 1.8 mg/dL (1.8-2.4); PHOSPHOROUS 4.3 mg/dL (2.5-4.9); POTASSIUM 4.4 mmol/L (3.5-5.1); UREA NITROGEN, BLOOD 24 mg/dL (7-18)
[2022-03-18] MEDS: PANTOPRAZOLE ORAL SUSPENSION 40 MG SUSPDR.PKT GT SCH ×2 (06:07→16:29)
[2022-03-18] MEDS: ASCORBIC ACID 500 MG TABLET GT SCH (08:05)
[2022-03-18] MEDS: BETHANECHOL CHLORIDE 25 MG TABLET GT SCH ×3 (08:05→16:29)
[2022-03-18] MEDS: MODAFINIL 100 MG TABLET GT SCH (08:05)
[2022-03-18] MEDS: AMLODIPINE 2.5 MG TABLET PO SCH ×3 (08:06→21:55)
[2022-03-18] MEDS: CULTURELLE CAPSULE GT SCH (08:06)
[2022-03-18] MEDS: levETIRAcetam 500 MG/5 ML LIQUID UDC GT SCH ×2 (08:07→21:39)
[2022-03-18] MEDS: ARGININE/GLUTAMINE/CALCIUM BMB 1 EACH POWD.PACK GT SCH ×2 (08:07→16:30)
--- NOTE | 2022-03-18 08:07 | NUR ---
SHIFT NOTE; PT CAREGIVER CALLED AND SAID DR HOLLOWAY EXPERIENCING CHEST PAIN AND DR ARNDT CALLED HE ORDERED STAT EKG,STAT TROPONIN XRAY HE CALLED AND ASKED HOW PT DOING AFTER TROPONIN NEGATIVE. PT DR. HOLLOWAY SAID NOT HAVING ANY CHEST PAIN OR ARM PAIN. PT BLADDER SCAN AT MIDNIGHT WAS 55ML NO IN OUT BARLOW PT AM BLADDER SCAN WHICH WAS AT 0600 SHOWED 88ML NO IN AND OUT REQUIRED. ENDORSED WHAT HAPPENED DURING THE NIGHT AND INSPECTOR WIRE ROPE. NO SIGNS OF DISTRESS NOTED.
[2022-03-18] MEDS: THERAHONEY GEL 1.5 OZ TUBE TOP SCH (08:08)
[2022-03-18] MEDS: CLOTRIMAZOLE 1% CREAM 30 GM TUBE TOP SCH ×2 (08:08→16:30)
[2022-03-18] MEDS: HEPARIN SODIUM,PORCINE 5,000 UNITS/ML VIAL SQ SCH ×2 (08:09→21:44)
[2022-03-18] MEDS: SIMETHICONE 80 MG TAB.CHEW GT SCH ×4 (08:13→21:40)
[2022-03-18] MEDS ORDERED: LISINOPRIL 10 MG TABLET PO SCH (09:00)
[2022-03-18] MEDS ORDERED: ISOSORBIDE MONONITRATE 30 MG TAB.SR.24H PO SCH (09:00)
[2022-03-18] MEDS: ACETAMINOPHEN 325 MG TABLET PO PRN (09:20)
[2022-03-18] MEDS: VITAL AF 1.2 1,000 ML LIQUID GT PRN (12:02)
[2022-03-18 15:14] VITALS: BP 99/57
[2022-03-18] MEDS ORDERED: IV NORMAL SALINE 500 ML IV ONE (15:15)
--- NOTE | 2022-03-18 15:32 | NUR ---
bladder scan result was 105 ml around 1400. patient noted with systolic blood pressure in high 90s 98/55, 97/ 54, reported to dr maldonado, family requested Imdur and lisinopril to be discontinued. discontinued both per dr stein, bolus IV 500ml administered as ordered, patient is asymptomatic at this time, verbally responsive, no acute distress noted, continue to monitor.
[2022-03-18 16:08] VITALS: BP 144/62
--- NOTE | 2022-03-18 16:09 | NUR ---
Patient blood pressure 144/62, pulse 85, patient is verbally responsive, following commands, no acute distress noted
--- NOTE | 2022-03-18 17:36 | NUR ---
patient had three times diarrhea, dr zamora made aware, with order to collect stool for c-diff, order noted
--- NOTE | 2022-03-18 18:13 | NUR ---
bladder scan performed with result of 376 residual, patient family and son at bedside, refused to have straight cath done, risks and benefits explained, family and patient verbalized understanding of it. patient is alert, awake, verbally responsive, no sob, respirations are even nonlabored, skin warm and dry to touch, pink color, no distress noted, turned and repositioned every 2 hours. no acute distress noted. Addendum: 03/18/22 at 1818 by FLORENCE ANN RN, RN no bladder distension noted, patient denied any bladder discomfort at this time.
--- NOTE | 2022-03-18 19:35 | NUR ---
received patient in bed, eyes open, respond to verbal stimuli, hob elevated, on GTF tolerate well no residual noted, no report of diarrhea noted at this time, private sitter at bedside, BP stable at this time, cont to monitor.
[2022-03-18 20:00] VITALS: BP 139/71
--- NOTE | 2022-03-18 21:39 | NUR ---
Norvacs meds not given requested by family, episode of low BP.
[2022-03-18] MEDS: ATORVASTATIN 20 MG TABLET GT SCH (21:40)
[2022-03-18] MEDS: DRONABINOL 2.5 MG CAPSULE PO SCH (21:44)
[2022-03-19] MEDS: VANCOMYCIN FOR PO/GT/NG USE GT SCH ×3 (00:34→12:39)
--- NOTE | 2022-03-19 00:39 | NUR ---
bladder scan done obtained 110cc of urine only, no straight cath necessary. cont to monitor.
[2022-03-19 04:00] VITALS: BP 147/66
[2022-03-19 07:36] VITALS: BP 143/62
[2022-03-19] MEDS: levETIRAcetam 500 MG/5 ML LIQUID UDC GT SCH (08:25)
[2022-03-19] MEDS: PANTOPRAZOLE ORAL SUSPENSION 40 MG SUSPDR.PKT GT SCH (08:25)
[2022-03-19] MEDS: CULTURELLE CAPSULE GT SCH (08:25)
[2022-03-19] MEDS: MODAFINIL 100 MG TABLET GT SCH (08:25)
[2022-03-19] MEDS: BETHANECHOL CHLORIDE 25 MG TABLET GT SCH ×2 (08:25→12:40)
[2022-03-19] MEDS: SIMETHICONE 80 MG TAB.CHEW GT SCH ×2 (08:26→12:40)
[2022-03-19] MEDS: ASCORBIC ACID 500 MG TABLET GT SCH (08:26)
[2022-03-19] MEDS: AMLODIPINE 2.5 MG TABLET PO SCH (08:27)
[2022-03-19] MEDS: CLOTRIMAZOLE 1% CREAM 30 GM TUBE TOP SCH (08:28)
[2022-03-19] MEDS: THERAHONEY GEL 1.5 OZ TUBE TOP SCH (08:28)
[2022-03-19] MEDS: ARGININE/GLUTAMINE/CALCIUM BMB 1 EACH POWD.PACK GT SCH (08:29)
[2022-03-19] MEDS: HEPARIN SODIUM,PORCINE 5,000 UNITS/ML VIAL SQ SCH (08:30)
[2022-03-19] MEDS: ACETAMINOPHEN 325 MG TABLET PO PRN (08:33)
[2022-03-19] MEDS: VITAL AF 1.2 1,000 ML LIQUID GT PRN (12:40)
--- NOTE | 2022-03-19 15:32 | NUR ---
Dr. Diego in the unit, received discharge order to home with home health.
[2022-03-19 16:10] VITALS: BP 150/66
--- NOTE | 2022-03-19 17:15 | NUR ---
Discharge instructions provided to the patient's son Delicia and caregiver Paula. Discharge papers signed by and given to the son including discharge prescription. All belongings well accounted for. Patient remains alert, responsive to verbal stimuli, not in any form of distress on room air. G-tube patent, g-tube site clean and dry. No complain of pain or discomfort. Attended to his needs promptly. Discharge prescription faxed to [facility]. Patient picked up by [facility] ambulance transferred via gurney.
== END 2022-03-19 17:10 | disposition home health service (06) | DRG 189 ==
PROVIDERS: ADMIT Physical Medicine & Rehabilitation Pain Medicine; ATTEND Physical Medicine & Rehabilitation Pain Medicine
DX: J96.01 Acute respiratory failure with hypoxia (principal); D68.59 Other primary thrombophilia; G93.49 Other encephalopathy; N39.0 Urinary tract infection, site not specified; I69.154 Hemiplegia and hemiparesis following nontraumatic intracerebral hemorrhage affecting left non-dominant side; J98.11 Atelectasis; E22.2 Syndrome of inappropriate secretion of antidiuretic hormone; R41.4 Neurologic neglect syndrome; I69.122 Dysarthria following nontraumatic intracerebral hemorrhage; I69.120 Aphasia following nontraumatic intracerebral hemorrhage; I69.190 Apraxia following nontraumatic intracerebral hemorrhage; I69.198 Other sequelae of nontraumatic intracerebral hemorrhage; Z85.46 Personal history of malignant neoplasm of prostate; D64.9 Anemia, unspecified; L98.429 Non-pressure chronic ulcer of back with unspecified severity; I11.9 Hypertensive heart disease without heart failure; I25.10 Atherosclerotic heart disease of native coronary artery without angina pectoris; Z95.5 Presence of coronary angioplasty implant and graft; Z93.1 Gastrostomy status; B96.5 Pseudomonas (aeruginosa) (mallei) (pseudomallei) as the cause of diseases classified elsewhere; E78.5 Hyperlipidemia, unspecified; L89.151 Pressure ulcer of sacral region, stage 1; E88.09 Other disorders of plasma-protein metabolism, not elsewhere classified; G93.89 Other specified disorders of brain; R73.03 Prediabetes; Z86.19 Personal history of other infectious and parasitic diseases; Z88.2 Allergy status to sulfonamides; Z90.79 Acquired absence of other genital organ(s); M19.90 Unspecified osteoarthritis, unspecified site; Z22.322 Carrier or suspected carrier of Methicillin resistant Staphylococcus aureus; R33.8 Other retention of urine; S31.819A Unspecified open wound of right buttock, initial encounter; X58.XXXA Exposure to other specified factors, initial encounter; Y93.9 Activity, unspecified; Y92.230 Patient room in hospital as the place of occurrence of the external cause
CPT/HCPCS: 36415; 71045; 83735; 84100; 84484; 85025; 93005; 97161; 97535-GO-CO; A4663; A6209; A6213; J0692; J1644; J3370; J7040; Q0167